=== PATIENT | female | born 1995 | race Caucasian/White ===

== ENCOUNTER 2023-02-16 17:42 | Emergency (ER) | payer SELFPAY ==
--- NOTE | 2023-02-16 18:45 | ER ---
Nurse's Notes [facility] Name: Michelle Khan Age: 27 yrs Sex: Female : 1995 Arrival Date: 02/16/2023 Time: 17:42 Bed 12 Private MD: Diagnosis: Influenza due to identified novel influenza A virus-B Presentation: 02/16 18:00 Chief complaint: Patient states: fatigue, decreased appetite, malaise, runny nose, body cm10 aches, cough, nausea, diarrhea onset wednesday. Coronavirus screen: Vaccine status: Patient reports being unvaccinated. Client denies travel out of the [place] in the last 14 days. Ebola Screen: Patient denies travel to an Ebola-affected area in the 21 days before illness onset. No symptoms or risks identified at this time. Initial Sepsis Screen: Does the patient meet any 2 criteria? No. Patient's initial sepsis screen is negative. Does the patient have a suspected source of infection? No. Patient's initial sepsis screen is negative. Risk Assessment: Do you want to hurt yourself or someone else? Patient reports no desire to harm self or others. Onset of symptoms was February 16, 2023. 18:00 Method Of Arrival: Ambulatory cm10 18:00 Acuity: UVALDO 4 cm10 Triage Assessment: 18:02 General: Appears in no apparent distress. comfortable, Behavior is calm, cooperative. cm10 Pain: Complains of pain in genralized body aches. EENT: No deficits noted. Reports pain in throat. Neuro: No deficits noted. Carty Agitation-Sedation Scale (RASS): 0 - Alert and Calm Level of Consciousness is awake, alert, obeys commands, Oriented to person, place, time, situation. Cardiovascular: No deficits noted. Patient's skin is warm and dry. Respiratory: No deficits noted. Airway is patent Respiratory effort is even, unlabored, Respiratory pattern is regular, symmetrical. GI: No deficits noted. Reports nausea. : No deficits noted. No signs and/or symptoms were reported regarding the genitourinary system. Derm: No deficits noted. No signs and/or symptoms reported regarding the dermatologic system. Skin is intact, Skin is pink, warm \T\ dry. 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 - Social history:: Smoking status: Reported history of juuling and/or vaping. Screenin:18 [facility] ED Fall Risk Assessment (Adult) History of falling in the last 3 months, cm10 including since admission No falls in past 3 months (0 pts) Confusion or Disorientation No (0 pts) Intoxicated or Sedated No (0 pts) Impaired Gait No (0 pts) Mobility Assist Device Used No (0 pt) Altered Elimination No (0 pt) Score/Fall Risk Level 0 - 2 = Low Risk Oriented to surroundings, Maintained a safe environment, Hourly rounding (assess needs \T\ fall precautionary measures) done. Abuse screen: Denies threats or abuse. Denies injuries from another. Nutritional screening: No deficits noted. Tuberculosis screening: No symptoms or risk factors identified. Vital Signs: 18:00 BP 128 / 84; Pulse 96; Resp 18 S; Temp 99.6(O); Pulse Ox 99% on R/A; Weight 86.18 kg cm10 (R); Height 5 ft. 5 in. (R); 19:08 BP 114 / 81; Pulse 89; Resp 18 S; Pulse Ox 100% on R/A; cm10 18:00 Body Mass Index 31.62 (86.18 kg, 165.1 cm) cm10 ED Course: 17:46 Patient arrived in ED. im 17:46 Ni Vela FNP-C is PHCP. kb 17:46 Harmeet Dias DO is Attending Physician. kb 18:00 Aiyana Cordero, NELSON is Primary Nurse. cm10 18:01 Triage completed. cm10 18:03 Arm band placed on Patient placed in an exam room, on a stretcher, on pulse oximetry. cm10 18:05 SARS-COV-2 RT PCR Sent. cm10 18:05 Flu Sent. cm10 18:05 Strep Sent. cm10 19:09 Patient has correct armband on for positive identification. Provided Education on: ER cm10 process and procedures. . 19:09 No provider procedures requiring assistance completed. Patient did not have IV access cm10 during this emergency room visit. Administered Medications: No medications were administered Medication: 18:18 VIS not applicable for this client. cm10 Outcome: 18:44 Discharge ordered by . ganga 19:09 Discharged to home ambulatory, cm10 19:09 Condition: good 19:09 Discharge instructions given to patient, Instructed on discharge instructions, follow up and referral plans. Demonstrated understanding of instructions, follow-up care, 19:09 Patient left the ED. cm10 Signatures: Ni Vela FNP-C FNP-Nataly Carreno Clarissa, RN RN cm10
--- NOTE | 2023-02-16 18:45 | EDPHYS ---
Physician Documentation [facility] Name: Michelle Khan Age: 27 yrs Sex: Female : 1995 Arrival Date: 02/16/2023 Time: 17:42 Bed 12 Private MD: ED Physician Harmeet Dias HPI: 02/16 18:04 This 27 yrs old Female presents to ER via Ambulatory with complaints of Flu Symptoms. kb 18:04 The patient or guardian reports cough, that is intermittent, described as mild, flu kb symptoms, low-grade fever, myalgias. Onset: The symptoms/episode began/occurred 3 day(s) ago. Severity of symptoms: At their worst the symptoms were moderate, in the emergency department the symptoms are unchanged. Modifying factors: The symptoms are alleviated by nothing, the symptoms are aggravated by nothing. Associated signs and symptoms: Pertinent positives: diarrhea, fever, nausea, rhinorrhea, sore throat, Pertinent negatives: chest pain, ear ache, vomiting. The patient has not experienced similar symptoms in the past. The patient has not recently seen a physician. 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 - Social history:: Smoking status: Reported history of juuling and/or vaping. ROS: 18:03 Cardiovascular: Negative for chest pain, palpitations, and edema, kb 18:03 Constitutional: Positive for body aches, chills, fatigue, fever, malaise, 18:03 ENT: Positive for rhinorrhea, sinus congestion, sore throat, 18:03 Respiratory: Positive for cough, 18:03 Abdomen/GI: Positive for nausea, diarrhea, Negative for vomiting, 18:03 All other systems are negative, Exam: 18:03 Constitutional: This is a well developed, well nourished patient who is awake, alert, kb and in no acute distress. Head/Face: Normocephalic, atraumatic. ENT: Moist Mucous membranes Cardiovascular: Regular rate Respiratory: Respirations even and unlabored. No increased work of breathing. Talking in full sentences Abdomen/GI: Soft, non-tender. No distention Skin: Warm, dry with normal turgor. Normal color. MS/ Extremity: Pulses equal, no cyanosis. Neurovascular intact. Full, normal range of motion. Neuro: Awake and alert, GCS 15, oriented to person, place, time, and situation. Moves all extremities. Normal gait. Vital Signs: 18:00 BP 128 / 84; Pulse 96; Resp 18 S; Temp 99.6(O); Pulse Ox 99% on R/A; Weight 86.18 kg cm10 (R); Height 5 ft. 5 in. (R); 19:08 BP 114 / 81; Pulse 89; Resp 18 S; Pulse Ox 100% on R/A; cm10 18:00 Body Mass Index 31.62 (86.18 kg, 165.1 cm) cm10 MDM: 17:47 Patient medically screened. kb 18:04 Differential diagnosis: flu, covid, uri, strep. Data reviewed: vital signs, nurses kb notes. 18:32 Counseling: I had a detailed discussion with the patient and/or guardian regarding the kb historical points, exam findings, and any diagnostic results supporting the discharge/admit diagnosis, lab results, the need for outpatient follow up, a family practitioner, to return to the emergency department if symptoms worsen or persist or if there are any questions or concerns that arise at home. 02/16 17:53 Order name: Strep; Complete Time: 18:32 kb 02/16 17:53 Order name: Flu; Complete Time: 18:32 kb 02/16 17:53 Order name: SARS-COV-2 RT PCR; Complete Time: 18:44 kb 02/16 18:31 Order name: Throat Culture EDMS Administered Medications: No medications were administered Disposition: 22:00 I was immediately available on-site in the Emergency Department for consultation in the ms3 care of the patient. Disposition Summary: 02/16/23 18:44 Discharge Ordered Notes: Location: Home Condition: Stable Diagnosis - Influenza due to identified novel influenza A virus - B kb Followup: kb - With: Emergency Department - When: As needed - Reason: Worsening of condition Followup: kb - With: Private Physician - When: 2 - 3 days - Reason: Recheck today's complaints, Continuance of care, Re-evaluation by your physician Discharge Instructions: - Discharge Summary Sheet kb - Influenza, Adult, [id number] kb Forms: - Medication Reconciliation Form kb - Thank You Letter kb - Patient Portal Instructions kb - Leadership Thank You Letter kb - Work release form cm10 Signatures: Dispatcher [employer] EDNi Kerr, MARKUSC Harmeet El, DO ms3 Aiyana Cordero, RN RN cm10
[2023-02-16 19:18] VITALS: TEMP 99.6
[2023-02-16 19:19] VITALS: BP 114/81; O2SAT 100
== END 2023-02-16 19:09 | disposition home or self-care (01) ==
LOC: ER 17:42
DX: J10.1 Influenza due to other identified influenza virus with other respiratory manifestations (principal); Z20.822 Contact with and (suspected) exposure to COVID-19
CPT/HCPCS: 87070; 87081; 87635; 87804

== ENCOUNTER → 2023-05-24 | Emergency (ER) | payer SELFPAY ==
[~2023-05-24] MED LIST: LIDOCAINE HCL JELLY 2% 6 ML SYRINGE TOP ONE; OXYCODONE *CR* 10 MG TAB PO ONE
--- OUTSIDE RECORDS SUMMARY | 2023-05-24 08:23 | XMS REPORT | Continuity of Care Document ---
Author Name Unknown Address [address] [facility] [address] [place] [address] [facility] thconnect Address [address] [facility] [place] [address] Care Team Providers Care Shank Rander Name Role Phone PCP, PATIENT DOES NOT HAVE A Primary Care Physic naeem Unavailable CONCHITA BARBOUR Attending Clinician Unavailable BETHEL JOHNSTON Attending Clinician Unavailable AARON ZAMARRIPA Attending Clinician Unavailable Aaron Barbosa Attending Clinician [phone] Bethel Johnston MD Attending Clinician [phone], [facility] Attending Clinician Unavailable Doctor Unassigned, [place] Attending Clinician U navailable Pob, [facility] Main Attending Clinician UnavailConchita Ascencio MD Attending Clinician [phone] Only, Ad[facility] Test Attending Clinician Unavailable CONCHITA BARBOUR Admitting Clinician Unavailable BETHEL JOHNSTON Admitting Clinician Unavailable Conchita Barbour MD Admitting Clinician [phone] Payers Payer Name Policy Type Policy Number Effective Date Expirati on Date Source [facility] [id number] 00:00:00 [facility] [place] [facility] [id number] 00[place]00 [place] [facility] [id number] 2022 00:00:00 Problems Condition Name Condition Details Condition Category Status Onset Date Resolution Date Last Treatment Date Treating Clinician Comments Source Pre-op exam Pre-op exam Disease Active 05-14 00:00: 00 Overview: Formattin g of this note might be different from the original. Added automatic ally from request for surgery [id number] [facility] Encounter for sterilizat ion Encounter for sterilizat ion Disease Active 05-14 00:00: 00 Overview: Formattin g of this note might be different from the original. Added automatic ally from request for surgery [id number] [facility] Obesity (BMI 30-39.9) Obesity (BMI 30-39.9) Disease Active 2019-05 00:00: 00 [facility] Normal vaginal delivery Normal vaginal delivery Disease Active 05-19 00:00: 00 [facility] Cervical prolapse Cervical prolapse Disease Active 2017-05 00:00: 00 [facility] Threatened premature labor affecting , less than 37 weeks in third trimester, antepartum Threatened premature labor affecting , less than 37 weeks in third trimester, antepartum Disease Active 2017-05 00:00: 00 [facility] Allergies, Adverse Reactions, Alerts Allergy Name Allergy Type Status Severity Reaction(s) Onset Date Inactive Date Treating Clinician Comments Source NO KNOWN ALLERGIE S Drug Class Active [facility] Social History Social Habit Start Date Stop Date Quantity Comments Source History of tobacco use Cigarette Smoker [facility] Exposure to SARS-CoV-2 (event) 2022-07-18 00:00:00 2022-07-28 15:13:00 Not sure [facility] Alcohol intake 2022-07-28 00:00:00 2022-07-28 00:00:00 .43 /d [facility] Tobacco use and exposure 2022-07-10 00:00:00 2022-07-10 00:00:00 Smokeless tobacco non-user [facility] Tobacco Comment 2022-05-11 00:00:00 2022-05-11 00:00:00 some day might have a smoke / rare [facility] Alcohol Comment 2020-02-09 00:00:00 2020-02-09 00:00:00 rare [facility] Sex Assigned At 1995 00:00:00 1995 00:00:00 [facility] Smoking Status Start Date Stop Date Source Ex-smoker 2022-07-10 00:00:00 2022-07-10 00:00:00 [facility] Occasional tobacco smoker 2022-05-11 00:00:00 [facility] Medications Ordered Medication Name Filled Medication Name Start Date Stop Date Current Medication? Ordering Clinician Indication Dosage Frequency Signature (SIG) Comments Components Source acetaminoph en-caff-but albital (ESGIC) per capsule 07-10 00:00: 00 Yes [id number] 1{capsu le} Take 1 capsule by mouth every 4 (four) hours as needed for Pain. [facility] Ketoconazol e 1 % shampoo 07-10 00:00: 00 Yes [id number] Apply to area(s) daily. [facility] acetaminoph en-caff-but albital (ESGIC) per capsule 07-10 00:00: 00 Yes [id number] 1{capsu le} Take 1 capsule by mouth every 4 (four) hours as needed for Pain. [facility] Ketoconazol e 1 % shampoo 07-10 00:00: 00 Yes [id number] Apply to area(s) daily. [facility] acetaminoph en-caff-but albital (ESGIC) per capsule 07-10 00:00: 00 Yes [id number] 1{capsu le} Take 1 capsule by mouth every 4 (four) hours as needed for Pain. [facility] Ketoconazol e 1 % shampoo 07-10 00:00: 00 Yes [id number] Apply to area(s) daily. [facility] acetaminoph en-caff-but albital (ESGIC) per capsule 07-10 00:00: 00 Yes [id number] 1{capsu le} Take 1 capsule by mouth every 4 (four) hours as needed for Pain. [facility] Ketoconazol e 1 % shampoo 07-10 00:00: 00 Yes [id number] Apply to area(s) daily. [facility] acetaminoph en-caff-but albital (ESGIC) per capsule 07-10 00:00: 00 Yes [id number] 1{capsu le} Take 1 capsule by mouth every 4 (four) hours as needed for Pain. [facility] Ketoconazol e 1 % shampoo 07-10 00:00: 00 Yes [id number] Apply to area(s) daily. [facility] acetaminoph en-caff-but albital (ESGIC) per capsule 07-10 00:00: 00 Yes [id number] 1{capsu le} Take 1 capsule by mouth every 4 (four) hours as needed for Pain. [facility] Ketoconazol e 1 % shampoo 07-10 00:00: 00 Yes [id number] Apply to area(s) daily. [facility] fluconazole (DIFLUCAN) 150 mg tablet 07-10 00:00: 00 07-25 04:59 :00 No [id number] 150mg Take 1 tablet by mouth every 72 (seventy-t wo) hours for 14 days. [facility] fluconazole (DIFLUCAN) 150 mg tablet 07-10 00:00: 00 07-25 04:59 :00 No [id number] 150mg Take 1 tablet by mouth every 72 (seventy-t wo) hours for 14 days. [facility] fluconazole (DIFLUCAN) 150 mg tablet 07-10 00:00: 00 07-25 04:59 :00 No [id number] 150mg Take 1 tablet by mouth every 72 (seventy-t wo) hours for 14 days. [facility] fluconazole (DIFLUCAN) 150 mg tablet 07-10 00:00: 00 07-25 04:59 :00 No [id number] 150mg Take 1 tablet by mouth every 72 (seventy-t wo) hours for 14 days. [facility] nystatin 100,000 unit/gram cream 4-22 00:00: 00 Yes [id number] Apply to area(s) 2 (two) times daily. [facility] nystatin 100,000 unit/gram cream 08-22 00:00: 00 Yes [id number] Apply to area(s) 2 (two) times daily. [facility] nystatin 100,000 unit/gram cream 08-22 00:00: 00 Yes [id number] Apply to area(s) 2 (two) times daily. [facility] nystatin 100,000 unit/gram cream 08-22 00:00: 00 05-11 00:00 :00 No [id number] Apply to area(s) 2 (two) times daily. [facility] nystatin 100,000 unit/gram cream 08-22 00:00: 00 05-11 00:00 :00 No [id number] Apply to area(s) 2 (two) times daily. [facility] lactated ringers IV infusion 1,000 mL 05-23 15:45: 00 Yes 1000mL at 75 mL/hr, 1,000 mL, IV Infusion, CONTINUOUS , Starting Juanita 05/23/20 at 0945, Until Discontinu ed, Routine, PACU [facility] FENTanyl PF (SUBLIMAZE (PF)) injection 25 mcg 05-23 15:36: 12 Yes 25ug 25 mcg, Slow IV Push, Q5MIN PRN, 4 doses, Starting Juanita 05/23/20 at 0936, Until Discontinu ed, Routine, Pain (scale 4-6), PACU [facility] ondansetron (ZOFRAN (PF)) injection 4 mg 05-23 15:36: 12 Yes 4mg 4 mg, Slow IV Push, PRN, 1 dose, Starting Juanita 05/23/20 at 0936, Until Discontinu ed, Routine, Nausea and Vomiting (N/V), PACU [facility] sodium chloride 0.9 % irrigation solution 05-23 14:38: 00 Yes PRN, Starting Juanita 05/23/20 at 0838, Until Discontinu ed, Intra-op [facility] bupivacaine (preserv free) (SENSORCAIN E MPF) 0.25 % (2.5 mg/mL) injection 05-23 14:28: 00 Yes PRN, Starting Juanita 05/23/20 at 0828, Until Discontinu ed, Routine, Intra-op [facility] lactated ringers IV infusion 1,000 mL 05-23 13:15: 00 05-23 13:20 :00 No 1000mL at 42 mL/hr, 1,000 mL, IV Infusion, ONCE, 1 dose, Juanita 05/23/20 at 0715, Routine, DSU Pre-op [facility] ibuprofen 800 mg tablet 05-23 00:00: 00 Yes [id number] 800mg Take 1 tablet by mouth every 8 (eight) hours as needed for Pain (scale 1-3), Pain (scale 4-6) or Alternate with Herrick for pain scale 4-6. [facility] ibuprofen 800 mg tablet 05-23 00:00: 00 Yes [id number] 800mg Take 1 tablet by mouth every 8 (eight) hours as needed for Pain (scale 1-3), Pain (scale 4-6) or Alternate with Herrick for pain scale 4-6. [facility] ibuprofen 800 mg tablet 05-23 00:00: 00 Yes [id number] 800mg Take 1 tablet by mouth every 8 (eight) hours as needed for Pain (scale 1-3), Pain (scale 4-6) or Alternate with Herrick for pain scale 4-6. [facility] ibuprofen 800 mg tablet 05-23 00:00: 00 Yes [id number] 800mg Take 1 tablet by mouth every 8 (eight) hours as needed for Pain (scale 1-3), Pain (scale 4-6) or Alternate with Herrick for pain scale 4-6. [facility] ibuprofen 800 mg tablet 05-23 00:00: 00 Yes [id number] 800mg Take 1 tablet by mouth every 8 (eight) hours as needed for Pain (scale 1-3), Pain (scale 4-6) or Alternate with Herrick for pain scale 4-6. [facility] ibuprofen 800 mg tablet 05-23 00:00: 00 Yes [id number] 800mg Take 1 tablet by mouth every 8 (eight) hours as needed for Pain (scale 1-3), Pain (scale 4-6) or Alternate with Herrick for pain scale 4-6. [facility] ibuprofen 800 mg tablet 05-23 00:00: 00 Yes [id number] 800mg Take 1 tablet by mouth every 8 (eight) hours as needed for Pain (scale 1-3), Pain (scale 4-6) or Alternate with Herrick for pain scale 4-6. [facility] mg tablet 05-23 00:00: 00 05-11 00:00 :00 No [id number] 800mg Take 1 tablet by mouth every 8 (eight) hours as needed for Pain (scale 1-3), Pain (scale 4-6) or Alternate with Herrick for pain scale 4-6. [facility] 800 mg tablet 05-23 00:00: 00 05-11 00:00 :00 No [id number] 800mg Take 1 tablet by mouth every 8 (eight) hours as needed for Pain (scale 1-3), Pain (scale 4-6) or Alternate with Herrick for pain scale 4-6. [facility] HYDROcodone -acetaminop hen 5-325 mg tablet 05-23 00:00: 00 05-26 05:59 :00 No [id number] 1{tbl} Take 1 tablet by mouth every 6 (six) hours as needed for Pain (scale 7-10) for up to 2 days. Indication s: acute pain, Post op pain [facility] 150 mg SR tablet 05-20 00:00: 00 Yes [facility] buPROPion SR 150 mg SR tablet 05-20 00:00: 00 Yes [facility] buPROPion SR 150 mg SR tablet 05-20 00:00: 00 Yes [facility] buPROPion SR 150 mg SR tablet 05-20 00:00: 00 Yes [facility] buPROPion SR 150 mg SR tablet 05-20 00:00: 00 Yes [facility] buPROPion SR 150 mg SR tablet 0 05-20 00:00: 00 Yes [facility] buPROPion SR 150 mg SR tablet 0 05-20 00:00: 00 Yes [facility] buPROPion SR 150 mg SR tablet 0 05-20 00:00: 00 Yes [facility] buPROPion SR 150 mg SR tablet 0 05-20 00:00: 00 Yes [facility] buPROPion SR 150 mg SR tablet 0 05-20 00:00: 00 Yes [facility] buPROPion SR 150 mg SR tablet 0 05-20 00:00: 00 Yes [facility] buPROPion SR 150 mg SR tablet 05-20 00:00: 00 07-10 00:00 :00 No [facility] buPROPion SR 150 mg SR tablet 05-20 00:00: 00 07-10 00:00 :00 No [facility] norethindro ne 0.35 mg tablet 2019-05 0 00:00: 00 Yes [id number] .35mg Take 1 tablet by mouth daily. [facility] norethindro ne 0.35 mg tablet 2019-05 00:00: 00 Yes [id number] .35mg Take 1 tablet by mouth daily. [facility] norethindro ne 0.35 mg tablet 2019-05 00:00: 00 Yes [id number] .35mg Take 1 tablet by mouth daily. [facility] norethindro ne 0.35 mg tablet 2019-05 0 00:00: 00 Yes [id number] .35mg Take 1 tablet by mouth daily. [facility] norethindro ne 0.35 mg tablet 2019-05 0 00:00: 00 Yes [id number] .35mg Take 1 tablet by mouth daily. [facility] norethindro ne 0.35 mg tablet 2019-05 0 00:00: 00 Yes [id number] .35mg Take 1 tablet by mouth daily. [facility] norethindro ne 0.35 mg tablet 2019-05 00:00: 00 Yes [id number] .35mg Take 1 tablet by mouth daily. [facility] norethindro ne 0.35 mg tablet 2019-05 00:00: 00 Yes [id number] .35mg Take 1 tablet by mouth daily. [facility] norethindro ne 0.35 mg tablet 2019-05 00:00: 00 Yes [id number] .35mg Take 1 tablet by mouth daily. [facility] norethindro ne 0.35 mg tablet 2019-05 00:00: 00 Yes [id number] .35mg Take 1 tablet by mouth daily. [facility] norethindro ne 0.35 mg tablet 2019-05 00:00: 00 Yes [id number] .35mg Take 1 tablet by mouth daily. [facility] norethindro ne 0.35 mg tablet 2019-05 00:00: 00 Yes [id number] .35mg Take 1 tablet by mouth daily. [facility] norethindro ne 0.35 mg tablet 2019-05 00:00: 00 Yes [id number] .35mg Take 1 tablet by mouth daily. [facility] norethindro ne 0.35 mg tablet 2019-05 00:00: 00 Yes [id number] .35mg Take 1 tablet by mouth daily. [facility] norethindro ne 0.35 mg tablet 2019-05 00:00: 00 05-23 00:00 :00 No [id number] .35mg Take 1 tablet by mouth daily. [facility] HYDROcodone -acetaminop hen 5-325 mg tablet 12-28 00:00: 00 02-08 00:00 :00 No TAKE 1 TABLET BY MOUTH EVERY 6 HOURS NEEDED [facility] HYDROcodone -acetaminop hen 5-325 mg tablet 12-28 00:00: 02-08 00:00 :00 No TAKE 1 TABLET BY MOUTH EVERY 6 HOURS NEEDED [facility] Vital Signs Vital Name Observation Time Observation Value Comments S no Systolic blood pressure 2022-07-28 20:21:00 124 mm[Hg] [facility] Diastolic blood pressure 2022-07-28 20:21:00 87 mm[Hg] [facility] Heart rate 2022-07-28 20:21:00 75 /min [facility] Body temperature 2022-07-28 20:21:00 36.17 Vicky [facility] Respiratory rate 2022-07-28 20:21:00 18 /min [facility] Body height 2022-07-28 20:21:00 165.1 cm [facility] Body weight 2022-07-28 20:21:00 95.21 kg [facility] BMI 2022-07-28 20:21:00 34.93 kg/m2 [facility] Oxygen saturation in Arterial blood by Pulse oximetry 2022-07-28 20:21:00 98 /min [facility] Systolic blood pressure 2022-07-10 14:48:00 134 mm[Hg] [facility] Diastolic blood pressure 2022-07-10 14:48:00 90 mm[Hg] [facility] Heart rate 2022-07-10 14:45:00 73 /min [facility] Body temperature 2022-07-10 14:45:00 36.61 [facility] Respiratory rate 2022-07-10 14:45:00 18 /min [facility] Body height 2022-07-10 14:45:00 165.1 cm [facility] Body weight 2022-07-10 14:45:00 97.07 kg [facility] BMI 2022-07-10 14:45:00 35.61 kg/m2 [facility] Oxygen saturation in Arterial blood by Pulse oximetry 2022-07-10 14:45:00 99 /min [facility] Systolic blood pressure 2022-05-11 21:04:00 131 mm[Hg] [facility] Diastolic blood pressure 2022-05-11 21:04:00 89 mm[Hg] [facility] Heart rate 2022-05-11 21:04:00 73 /min [facility] Body temperature 2022-05-11 21:04:00 36.72 [facility] Body weight 2022-05-11 21:04:00 95.89 kg [facility] BMI 2022-05-11 21:04:00 35.18 kg/m2 [facility] Systolic blood pressure 2020-08-22 13:04:00 126 mm[Hg] [facility] Diastolic blood pressure 2020-08-22 13:04:00 78 mm[Hg] [facility] Heart rate 2020-08-22 13:04:00 82 /min [facility] Body temperature 2020-08-22 13:04:00 36.44 [facility] Respiratory rate 2020-08-22 13:04:00 18 /min [facility] Body height 2020-08-22 13:04:00 165.1 cm [facility] Body weight 2020-08-22 13:04:00 91.627 kg [facility] BMI 2020-08-22 13:04:00 33.61 kg/m2 [facility] Systolic blood pressure 2020-05-23 15:40:00 120 mm[Hg] [facility] Diastolic blood pressure 2020-05-23 15:40:00 80 mm[Hg] [facility] Heart rate 2020-05-23 15:40:00 81 /min [facility] Body temperature 2020-05-23 15:40:00 36.67 [facility] Respiratory rate 2020-05-23 15:40:00 18 /min [facility] Oxygen saturation in Arterial blood by Pulse oximetry 2020-05-23 15:40:00 99 /min [facility] Body weight 2020-05-15 16:41:00 88.9 kg [facility] BMI 2020-05-15 16:41:00 32.61 kg/m2 [facility] Systolic blood pressure 2020-05-08 19:18:00 135 mm[Hg] [facility] Diastolic blood pressure 2020-05-08 19:18:00 75 mm[Hg] [facility] Heart rate 2020-05-08 19:18:00 90 /min [facility] Body temperature 2020-05-08 19:18:00 36.72 [facility] Respiratory rate 2020-05-08 19:18:00 16 /min [facility] Body height 2020-05-08 19:18:00 165.1 cm [facility] Body weight 2020-05-08 19:18:00 88.905 kg [facility] BMI 2020-05-08 19:18:00 32.62 kg/m2 [facility] Systolic blood pressure 2020-04-04 16:44:00 124 mm[Hg] [facility] Diastolic blood pressure 2020-04-04 16:44:00 74 mm[Hg] [facility] Heart rate 2020-04-04 16:44:00 74 /min [facility] Body temperature 2020-04-04 16:44:00 36.67 [facility] Respiratory rate 2020-04-04 16:44:00 16 /min [facility] Body height 2020-04-04 16:44:00 165.1 cm [facility] Body weight 2020-04-04 16:44:00 89.812 kg [facility] BMI 2020-04-04 16:44:00 32.95 kg/m2 [facility] Systolic blood pressure 2020-02-09 20:05:00 122 mm[Hg] [facility] Diastolic blood pressure 2020-02-09 20:05:00 88 mm[Hg] [facility] Heart rate 2020-02-09 20:05:00 79 /min [facility] Body temperature 2020-02-09 20:05:00 36.78 [facility] Respiratory rate 2020-02-09 20:05:00 18 /min [facility] Body height 2020-02-09 20:05:00 165.1 cm [facility] Body weight 2020-02-09 20:05:00 89.812 kg [facility] BMI 2020-02-09 20:05:00 32.95 kg/m2 [facility] Procedures Procedure Date / Time Performed Performing Clinician Source BI ULTRASOUND BREAST COMPLETE LEFT 2022-07-21 13:57:27 Bethel Johnston [facility] PATIENT FINANCIAL POLICY 2022-07-10 14:27:33 Doctor Unassigned, [place] [facility] ASSIGNMENT OF BENEFITS 2022-05-11 20:52:05 Docto r Unassigned, [place] [facility] POCT URINALYSIS W/O SPECIFIC GRAVITY 2022-05-11 00:00:00 Bethel Johnston [facility] SURGICAL PATHOLOGY EXAM 2020-05-23 15:06:00 AdNickie mahan [facility] LAPAROSCOPIC SALPINGECTOMY 2020-05-23 13:43:00 Conchita Barbour [facility] ASSIGNMENT OF BENEFITS 2020-05-22 14:30:07 Docto r Unassigned, [place] [facility] DSU PRE-OP 2020-05-08 06:01:00 Doctor Unass igned, [place] [facility] STERILIZATION CONSENT FORM 2020-04-04 06:01:00 Doctor Unassigned, [place] [facility] POCT TEST 2020-02-09 00:00:00 Conchita Barbour [facility] Encounters Start Date/Time End Date/Time Encounter Type Admission Type Attending Clinicians Care Facility Care Department Encounter ID Source 2021-03-01 17:24:49 Outpatient R CONCHITA BARBOUR [facility] [id number] [facility] 2023-01-11 08:30:00 2023-01-11 08:30:00 Outpatient R BETHEL JOHNSTON [facility] [id number] [facility] 2022-07-28 15:30:00 2022-07-28 15:41:59 Outpatient R AARON ZAMARRIPA [facility] [id number] [facility] 2022-07-28 15:30:00 2022-07-28 15:41:59 [facility] [id number] 350.1.13.10 [id number] [id number] [facility] 2022-07-21 08:01:17 2022-07-21 23:59:00 Outpatient R JOHNSTON BETHEL [facility] [id number] [facility] 2022-07-21 08:00:00 2022-07-21 23:59:00 Hospital Encounter Blessing Johnstonen [facility] [id number] 350.1.13.10 4.2.7.2.686 [id number] [facility] 2022-07-13 00:00:00 2022-07-13 00:00:00 Telephone Aaron Zamarripa [facility] [id number] 350.1.13.10 4.2.7.2.686 [id number] [facility] 2022-07-10 09:30:00 2022-07-10 09:45:00 Wildlife Biology Technician Visit 2, [facility] [id number] 350.1.13.10 4.2.7.2.686 [id number] [facility] 2022-07-10 09:00:00 2022-07-10 09:09:37 Outpatient R AARON ZAMARRIPA [facility] [id number] [facility] 2022-07-10 09:00:00 2022-07-10 09:09:37 Office Visit Walter Zamarripassica [facility] [id number] 350.1.13.10 4.2.7.2.686 [id number] [facility] 2022-07-10 00:00:00 2022-07-10 00:00:00 Orders Only Doctor Unassigned, [place] [facility] [id number] 350.1.13.10 4.2.7.2.686 [id number] [facility] 2022-05-15 12:45:00 2022-05-15 13:00:00 Wildlife Biology Technician Visit Pob, [facility] Main Bethel Johnston [facility] [id number] 350.1.13.10 4.2.7.2.686 [id number] [facility] 2022-05-15 12:45:00 2022-05-15 12:45:00 Outpatient R BETHEL JOHNSTON [facility] [id number] [facility] 2022-05-14 00:00:00 2022-05-14 00:00:00 Telephone Bethel Johnston [facility] 1.284.114 350.1.13.10 4.2.7.2.686 [id number] [facility] 2022-05-11 15:00:00 2022-05-11 15:29:25 Outpatient R BETHEL JOHNSTON [facility] [id number] [facility] 2022-05-11 15:00:00 2022-05-11 15:29:25 Office Visit Bethel Johnston [facility] 1.284.114 350.1.13.10 4.2.7.2.686 [id number] [facility] 2022-05-11 00:00:00 2022-05-11 00:00:00 Orders Only Doctor Unassigned, [place] [facility] 1.20.114 350.1.13.10 4.2.7.2.686 [id number] [facility] 2021-02-11 10:00:00 2021-02-11 10:00:00 Outpatient R CONCHITA BARBOUR [facility] [id number] [facility] 2020-11-05 11:00:00 2020-11-05 11:00:00 Outpatient R CONCHITA BARBOUR [facility] [id number] [facility] 2020-08-22 07:57:14 2020-08-22 08:38:37 Office Visit AdConchita mahan [facility] [id number] 350.1.13.10 4.2.7.2.686 [id number] [facility] 2020-08-22 08:00:00 2020-08-22 08:00:00 Outpatient R ONEALKALLI CONCHITA [facility] [id number] [facility] [facility] 2020[facility]22 00:00:00 2020-08-22 00:00:00 Letter (Out) Doctor Unassigned, [place] [id number] 350.1.13.10 4.2.7.2.686 [id number] [facility] 2020-08-22 00:00:00 2020-08-22 00:00:00 Letter (Out) Doctor Unassigned, [place] [facility] 1.2.840.114 350.1.13.10 4.2.7.2.686 [id number] [facility] 2020-08-21 00:00:00 2020-08-21 00:00:00 Telephone AdConchita mahan [facility] 1.2.840.114 350.1.13.10 4.2.7.2.686 [id number] [facility] 2020-06-06 13:00:00 2020-06-06 13:00:00 Outpatient R ONEALKALLI [facility] [id number] [facility] 2020-06-06 09:30:00 2020-06-06 09:30:00 Outpatient R BETHEL [facility] [id number] [facility] 2020-05-23 06:47:00 2020-05-23 10:06:00 Hospital Encounter AdConchita mahan [facility] 1.20.114 350.1.13.10 4.2.7.2.686 [id number] [facility] 2020-05-22 08:29:28 2020-05-22 08:44:28 Wildlife Biology Technician Visit Pob, Adc Lab Main Darío [facility] 1.2.114 350.1.13.10 4.2.7.2.686 [id number] [facility] 2020-05-22 08:29:18 2020-05-22 08:44:18 Laboratory Only Only, Adc Test Darío [facility] 1.2.114 350.1.13.10 4.2.7.2.686 [id number] [facility] 2020-05-22 08:30:00 2020-05-22 08:30:00 Outpatient R [facility] [id number] [facility] 2020-05-22 00:00:00 2020-05-22 00:00:00 Orders Only Doctor Unassigned, [place] [facility] 1.2.114 350.1.13.10 4.2.7.2.686 [id number] [facility] 2020-05-08 12:57:05 2020-05-08 13:44:12 Office Visit Darío [facility] Building 1.2.114 350.1.13.10 4.2.7.2.686 [id number] [facility] 2020-05-08 13:00:00 2020-05-08 13:00:00 Outpatient R DARÍO [facility] [id number] [facility] 2020-05-08 00:00:00 2020-05-08 00:00:00 Orders Only Doctor Unassigned, [place] [facility] 1.2.840.114 350.1.13.10 4.2.7.2.686 [id number] [facility] 2020-04-04 09:52:50 2020-04-04 11:26:44 Office Visit AdConchita mahan [facility] 1.2.840.114 350.1.13.10 4.2.7.2.686 [id number] [facility] 2020-04-04 10:00:00 2020-04-04 10:00:00 [facility] [id number] 2020-04-04 00:00:00 2020-04-04 00:00:00 Orders Only Doctor Unassigned, [place] [facility] 1.2.840.114 350.1.13.10 4.2.7.2.686 [id number] [facility] 2020-02-09 13:29:01 2020-02-09 14:52:14 Office Visit Conchita Barbour [facility] 1.2.840.114 350.1.13.10 4.2.7.2.686 [id number] [facility] 2020-02-09 13:30:00 2020-02-09 13:30:00 [facility] [id number] [facility] Results Test Description Test Time Test Comments Results Result Co mments Source [facility]/O SPECIFIC [id number] 21:02:00* Test Item Value Reference Range Interpretation Comme nts POCT PH U (test code = 3254) 5 mg/dl 5-8 POCT U LEUK EST (test code = 3263) ++ Negative - Negative POCT U NIT (test code = 3262) Negative Negative - Negati ve POCT U PROT (test code = 3259) Negative Negative - Negat kerline POCT U GLU (test code = 3256) Normal Negative - Negati ve POCT U KETONE (test code = 3258) Negative Negative - Neg ative POCT U BLD (test code = 3257) Negative - Negati ve [facility] [id number] 17:28:00* Test Item Value Reference Range Interpretation Comme nts Case Report (test code = 8331308600) Surgical Pathology ?Case: [id number] ? Authorizing Provider: ?Conchita Barbour MD ? Collected: ? 05/23/2020 0906 ?Ordering Location: ? ? [facility] ? ? ?Received: ?05/23/2020 1451 ? [facility] ?Pathologist: ? Willian Hagen MD ?Specimen: ? ?BILATERAL FALLOPIAN TUBES, BILATERAL PARTIAL FALLOPIAN TUBES ? Final Diagnosis (test code = 6791947022) q1dusVHyGCDhc2zlRBQsmST uZzEwMzNcZnRuYmpcdWMxIH aefoWtFYfyt3ReH4PfAxTyO FxhbnNpXGRlZmxhbmcxMDMz CNP6qjSsZMUnBHvbMQZcDZx jRs6foSAkpJuhThMgTGAxo6 fagtZOlfcvuMb4u9phRYEpP rT5qCQnXAieJ7hpyxTlkJRr LUEgPPl4aM93HNJcgR6kyWE sIDtccmVkMFxncmVlbjBcYm p3HDWaF0lnSAQwFVKbP5CzG D1eDNIhMsu8AUZ8ITQ4cAqp b2D6sKPfxJObcAsdTcZoIpX pAAUAp3LkSSy9dXssN1JkWR BzQoB1dMHfAPUzFQnjTGBvX KLhhfC3sD75QBejiqL6oOSm o3Pkh91si364aW6hlUZlFGY 0TGQdSNCdcPKpBQHpWLH5YQ JqlSTgJ6vyKRupOQ2okoxzU CE0RSszNKAriNfsCQlvBTOl PkEprOTcKGXaxJcaAYafy72 3RTH7MsIiJG3xX8Hlz4S3qL 9maXRcZGVmdGFiNzIwXGZvc n2lmYTiGIguq3SmDTS5cfR6 eLPtvJYfFRNpMC63Yhodz9N wCywlJRP9FMWpbxXra5Ise0 fpLtXfkxDjE7wpQ3IuSNGcH RAfMYSmHuYbkiWjo5Noj5Fk bOCnhFu9s5ptACRoYEWamBt ad0njKPF1QNWzT9B8bSTqy5 zfMTcvGUQucPI8jvBwSGDfx WFuL8TotY5aCAcnLU2ocii4 o6vrXwHsVA4mwlxye8aeVQe mMZTpFGY0CmCiDSWno9Zbhc kmFpWpl2LfaUOfMHhsD05tb 317STOmckTrZ8ztgPUocxdy bGFpblxmMFxmczIwXHFsXHB sYWluXGYwXGZzMjBccGxhaW 5cZjBcZnMyMFxwYXJccGxha X7lUxPtEqFlGANOAtHQBBbZ N1HPOU0xHBMSFSZfVWFDMVN XPCGNAHjiJ8XJMBCHFXCWHP GTT7ZKQZdBKynexNZjGAIbW I5sPyTLYIQAWu5BMxXNMKMC OL8KTT7MKRPAYEbCXTvJCqI EYLOIGCiQKV1BCEHOGWHntY FyXHBhclxwbGFpblxmMFxmc pZxRTOumv96WEK4AaGte2F7 JYZyNzLvKTHeHP8xlUifATC bTM3zKOJuE2lilT5cxvd3Zw RqLUUrDlR0GWCrpuP9Wfx2S UReIVozl5bzo0GyG6TdlGDh yEx9e2srIMSdZgM5lAPwLAn rV9ddtyDkrVErHJDaMHn8dN kyAmDdGCMoi7ljjcGiEzZcE NMgKSStKHLttWvznsv7uO02 OGEwiC0ftJArXBruujRgCtT 3VPmpWQWoJxP3IXCuhHFkRE MhI0owBYPzCMjtUNXfQRfvr FKeGBZ7wQmnz1P8zVFffHUc cEcwTdIgRoGiWHJGs3TuKLf 4qMtoW0GvSZLgJqN1jLKbZA GrCBszHUIyTCGqspO0iI97H TowjrN0nNOyl0Fmb01gj009 hA4fnUNtVDM9BBRpZQPxfXG yVTTaDZG8TFSikFJxI6loJR RpXG3hbhijROqiMKzzHXBiv MC3MJNxhYCaV1BrQROhLRiq VWLtabc3FuDzMo8nfPNrjMv nPExmq5day3iqnVDtUsu5MY PaRyOhOaeqLNhee9Yvv5coL MYryz3hOIG5uYZjxLbyj5E6 bGUxXGRudGJsbnNiZGJcZmV 0BQxhMV5fmc62NNJeXFK4ha 5ybGNccGdicmRyaGVhZFxwZ 9NvNBNmi831ONZlO1BpLJAs v7T5yeTxWoLcRUBisZC9ztT 0SDMlXSx0zMHmpgZ4glUsyB RlH2kuaX3hKYSxZK5fnpbdd 1aaOKmtFQhdJZRocGA6neN2 JBZbaGVcK8ZluX5sJCHhLIf wNIOusjl5WvSaUp0caFStiL cyMFxzYmtwYWdlXHBnbmNvb nRccGduZGVjXHBsYWluXHBs YWluXGYwXGZzMjRccWxccGx vfF8jWvOeQtKjZRonCJ8dYY XyO2clvGWrXTNeWNDxO7daZ gAraP6wgCktBLevScDmFyVd MFxwYXIgSSBoYXZlIHBlcnN ywgUojGssybW5wQZ5AANlDD doDUVsSUCywBBzmz0pwUpjW IBcGS3fKTFmuqDoCHyskRih ALoiQDU5GKSrxZCbiOWdhRM kZSBieSByZXNpZGVudHMsIG OdhNekv5Awo9WvwXS1rD0qz 4trs8MqPYHqxEY6RK68ssQ2 nX5oLZMjXG2nRVEjRL1wcFH yrCByISBjb05wnAsmdsLcLG BvcnQuXHBsYWluXGYyXGZzM jhcbGFuZzEwMzNcaGljaFxm AicaIaKtDTWoIQfcI6kqTqZ rNdWgVEmwYVB1zP== Clinical Information (test code = [id number]) PERMANENT STERILIZATION Gross Description (test code = 4292875608) i4leeSRiLDVfmPCfYlKhBBD vFLLhu1kbBLVfdGNvUqRvDf NcZnRuYmpcdWMxXGRlZmYwe 8rhg717uZLvd7kkYGKrFgK8 yRRjUDNphWEvE922FGPjSDl mx0klz0YkYIHyfLNif8P8YI VMyodkbSr2a2sbLpEhAaV4b JSuSJfpB2hwivUrjWFnJACh K4NjvfZXBYQyZkq1gDfsT15 fg3W8EryyQ6vhFFQqBZurWJ VdJEzkzAYyELT7BCUfCGP2M PrnjeTgfbR1YBdztGFlSzU2 UDp5h9xsnXqpJZXxDII0u8j lQNransYdCG4urb8ttQb3x9 xjczEgRGVmYXVsdCBQYXJhZ 5AnuLanMw4yyHy1aBiuKcrs RVD4Knu0CY0xst01fvu7iXb oKIRirnygTzF5CXzvBEGzkc vxMUt0LBqgPYXnzIZaBWCzx ZIyV4EgJLwcWQ3pwdz5ZtEb EC3irtzySEvmKEItFLA7HqX pKTWoq2FbrtuwXnBxyi4xdo 66RSZ6f9NtiEqxWLM1ZGK9Y cZlEw2jjNWuRORsRG8wMtDr xNMqTJXtyo92pSuuTXxpdwV bpH2dEdVtZFRpqMRzUDRxPZ 9ibWFwKROjuY5rxpqoEFWhK sRujfcgUKHcrTveopImOo1j sFjmFBW4GKotP1kpqQ8kMkR 4RQaiY2onyS5jQMh5LQaebB Q3XGZjlY1wQP8qimosp0ylB PX4EMtwVDXnfhC2nwYeNIYn oMHjN3KwaU53SoNcoBAgK6D xcB9sPMijYAIxrqx3GgXwUb 9ywFRwvZT5ZOtaSciuZLnaY HBnbmNvbnRccGduZGVjXHBs YWluXHBsYWluXGYwXGZzMjB ccGFyZFxwbGFpblxmMFxmcz IwXHBsYWluXGYxXGZzMjAgU 4MoT9ygRL9fCQBgcaRzHWNg cBPkPUFvraSfp2TtYKubdzJ sYWJlbGVkIHdpdGggdGhlIH CqvFdketSyueEzAL9pCSRQX GJuaT2sTOQfRRAnyZqbbHLy JRczzPZnhDaquXKyKMyyn2H xVP0joKIpNGYiEF9tVSVedp Vpo5ZdPYTteC2jPXBfK51ro ZRgXTQuF43cvlHzFS2wBWVi ft6deAVurWLxEwEwmR8duEK hQDC8TbNsYXGwMBDjwPZpru YlQN4hjKcqYuuuSA67DRBiF UxsWVMrFO7iqEWyNJIkSOYx AoifH68gfV2zwYJmQ6XjGHT 5IDAuNCBjbSBkaWFtZXRlci kuIFRoZSBmaXJzdCBtZWFzd ZYaSCK3oFPdTEeuewVhiXNt jRBgDOdoyI8fqehbD4aeRTX 1dCBzdXJmYWNlcyBhbmQgdG hvEMZtM13uNRNqYFRqoHNdZ BK1dAFlDGrxuwQwUDrrNXSp omBdyZYof8XqLrOkUZIwVUV zjPMby9MdqAO0oRHiFSYqU7 Woh47cWOYnSNFqcHDzwJS5C QVfdR4vPVDtKJRhwZXpMMIf oDClODB4iENuGQ5HGmZsUy0 bUX9eWME8mxMbYUJ9MzQmXh arXBNehTtjrS3mCxLnDyVqR rijXW6eTUVaN9wyzYAuIWQm POUwY6pfQpWihR3plFtiVqm jZjFcZnMxNlxwYXJccGxhaW 5cZjFcZnMyMCBKdWxpZSBNY 6mmrOQjUNkhVCFDPLVhyn7= Embedded Images (test code = [id number]) [facility] [id number] 20:07:00* Test Item Value Reference Range Interpretation Comme nts POCT PREG (test code = 1605) Negative On board controls acceptable with C Line (test code = 3574) Yes POCT PREG LOT # (test code = 3575) POCT PREG TEST DATE ( test code = 3576) Lab Interpretation (test cod e = 16982-9) Normal [facility] [id number] 20:07:00* Test Item Value Reference Range Interpretation Comme nts POCT PREG (test code = 1605) Negative On board controls acceptable with C Line (test code = 3574) Yes POCT PREG LOT # (test code = 3575) POCT PREG TEST DATE ( test code = 3576) Lab Interpretation (test cod e = 01699-0) Normal [facility]
--- NOTE | 2023-05-24 09:15 | EDPHYS ---
Physician Documentation [facility] Name: Michelle Khan Age: 27 yrs Sex: Female : 1995 Arrival Date: 05/24/2023 Time: 08:19 Bed 12 Private MD: ED Physician Yoni Child HPI: 05/24 09:06 This 27 yrs old Female presents to ER via Ambulatory with complaints of Abscess. sb4 09:06 The patient presents with an abscess of the right jaw. Description: The affected area sb4 is small, confluent, erythematous, fluctuant, raised, swollen, warm. Onset: The symptoms/episode began/occurred yesterday. Possible cause(s): unknown. Associated signs and symptoms: The patient has no apparent associated signs or symptoms. The patient has experienced a previous episode. The patient has not recently seen a physician. 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 sb4 Historical: - Allergies: 08:38 No Known Allergies; iw - Home Meds: 08:38 None [Active]; iw - PMHx: 08:38 None; iw - PSHx: 08:38 tubal ligation; iw - Immunization history:: Adult Immunizations. - Social history:: Smoking status: Reported history of juuling and/or vaping. ROS: 09:06 Constitutional: Negative for fever, chills, and weight loss, sb4 09:06 Skin: Positive for abscess, Exam: 09:06 Constitutional: This is a well developed, well nourished patient who is awake, alert, sb4 and in no acute distress. Head/Face: Normocephalic, atraumatic. Eyes: Extra-ocular motions intact. Periorbital areas with no swelling, redness, or edema. ENT: Mucous membranes moist. MS/ Extremity: Pulses equal, no cyanosis. Neurovascular intact. Full, normal range of motion. Neuro: Awake and alert, GCS 15, oriented to person, place, time, and situation. Motor strength 5/5 in all extremities. Sensory grossly intact. 09:06 Skin: abscess, that is small, of the right jaw, with fluctuance, that is moderate, Vital Signs: 08:37 BP 132 / 97; Pulse 75; Resp 16; Temp 98.1; Pulse Ox 98% ; Weight 86.18 kg; Height 5 ft. iw 5 in. ; 08:37 Body Mass Index 31.62 (86.18 kg, 165.1 cm) iw Procedures: 09:13 I \T\ D: Incision and drainage was performed for an abscess of the right jaw Prepped with sb4 Betadine, Anesthetized with topical lidocaine. Incised with 18 gauge. Drained small amount purulent fluid. Dressing: bandaid the patient tolerated the procedure well. MDM: 08:39 Patient medically screened. sb4 09:06 Differential diagnosis: abscess, allergic reaction, cellulitis, insect bite. sb4 09:13 Data reviewed: vital signs, nurses notes, and as a result, I will discharge patient. sb4 Counseling: I had a detailed discussion with the patient and/or guardian regarding the historical points, exam findings, and any diagnostic results supporting the discharge/admit diagnosis, to return to the emergency department if symptoms worsen or persist or if there are any questions or concerns that arise at home. Administered Medications: 08:59 Drug: Lidocaine Mucous Membrane Gel 2 % 1 application Mucous Membrane once Route: iw Mucous Membrane; Disposition Summary: 05/24/23 09:14 Discharge Ordered Notes: Location: Home sb4 Problem: new sb4 Symptoms: have improved sb4 Condition: Stable sb4 Diagnosis - Cutaneous abscess of face sb4 Followup: sb4 - With: Private Physician - When: 1 week - Reason: Recheck today's complaints, Continuance of care, Re-evaluation by your physician Discharge Instructions: - Discharge Summary Sheet sb4 - Skin Abscess sb4 - Incision and Drainage sb4 Forms: - Medication Reconciliation Form sb4 - Thank You Letter sb4 - Antibiotic Education sb4 - Prescription Opioid Use sb4 - Patient Portal Instructions sb4 - Leadership Thank You Letter sb4 Prescriptions: - Bactrim DS 800-160 mg Oral Tablet - take 1 tablet ORAL route every 12 hours for 10 days; 20 tablet; Refills: 0, sb4 Product Selection Permitted Addendum: 05/25/2023 10:37 I was immediately available for consultation during this patient's visit. I did not e c2 personally see the patient or discuss the patient with the MARI. . Signatures: Modesta Monterroso RN RN Lisa Miller, TOSHIA POPE sb4 Yoni Child MD MD ec2
--- NOTE | 2023-05-24 09:15 | ER ---
Nurse's Notes [facility] Name: Michelle Khan Age: 27 yrs Sex: Female : 1995 Arrival Date: 05/24/2023 Time: 08:19 Bed 12 Private MD: Diagnosis: Cutaneous abscess of face Presentation: 05/24 08:37 Chief complaint: Patient states: thought she had a pimple on right jaw , she popped it iw and now it's more inflamed. Coronavirus screen: At this time, the client does not indicate any symptoms associated with coronavirus-19. Ebola Screen: Patient negative for fever greater than or equal to 101.5 degrees Fahrenheit, and additional compatible Ebola Virus Disease symptoms Patient denies exposure to infectious person. Patient denies travel to an Ebola-affected area in the 21 days before illness onset. No symptoms or risks identified at this time. Initial Sepsis Screen: Does the patient meet any 2 criteria? No. Patient's initial sepsis screen is negative. Does the patient have a suspected source of infection? No. Patient's initial sepsis screen is negative. Risk Assessment: Do you want to hurt yourself or someone else? Patient reports no desire to harm self or others. Onset of symptoms was May 22, 2023. 08:37 Method Of Arrival: Ambulatory iw 08:37 Acuity: UVALDO 4 iw Historical: - Allergies: 08:38 No Known Allergies; iw - Home Meds: 08:38 None [Active]; iw - PMHx: 08:38 None; iw - PSHx: 08:38 tubal ligation; iw - Immunization history:: Adult Immunizations. - Social history:: Smoking status: Reported history of juuling and/or vaping. Assessment: 09:00 General: Appears in no apparent distress. Behavior is calm, cooperative. Pain: iw Complains of pain in right jaw. Neuro: Level of Consciousness is Oriented to. Vital Signs: 08:37 BP 132 / 97; Pulse 75; Resp 16; Temp 98.1; Pulse Ox 98% ; Weight 86.18 kg; Height 5 ft. iw 5 in. ; 08:37 Body Mass Index 31.62 (86.18 kg, 165.1 cm) iw ED Course: 08:21 Patient arrived in ED. rg4 08:23 Lisa Serrano PA-C is PHCP. sb4 08:23 Yoni Child MD is Attending Physician. sb4 08:38 Triage completed. iw 08:39 Arm band placed on. iw 08:45 Modesta Monterroso, RN is Primary Nurse. iw Administered Medications: 08:59 Drug: Lidocaine Mucous Membrane Gel 2 % 1 application Mucous Membrane once Route: iw Mucous Membrane; Outcome: 09:14 Discharge ordered by . sb4 09:29 Patient left the ED. iw Signatures: Modesta Monterroso RN RN iw Carmen Storey rg4 Lisa Serrano PA-C PA-C sb4
[2023-05-24 09:58] VITALS: BP 132/97; TEMP 98.1; O2SAT 98
== END ==
LOC: ER 08:19
PROC: 0H91XZZ Drainage of Face Skin, External Approach (ICD-10-PCS; principal; 2023-05-24)
DX: L02.01 Cutaneous abscess of face (principal)
CPT/HCPCS: 99282

== ENCOUNTER → 2023-05-25 | Emergency (ER) | payer SELFPAY ==
--- OUTSIDE RECORDS SUMMARY | 2023-05-25 08:45 | XMS REPORT | Continuity of Care Document ---
Author Name Unknown Address [address] [facility] [address] [place] [address] [facility] Address [address] [facility] [place] [address] Care Team Providers Care Biological Science Technician Name Role Phone PCP, PATIENT DOES NOT HAVE A Primary Care Physic naeem Unavailable CONCHITA BARBOUR Attending Clinician Unavailable BETHEL JOHNSTON Attending Clinician Unavailable AARON ZAMARRIPA Attending Clinician Unavailable Aaron Barbosa Attending Clinician Bethel Johnston MD Attending Clinician [phone], [facility] Attending Clinician Unavailable Doctor Unassigned, [place] Attending Clinician U navailable Pob, [facility] Main Attending Clinician UnavailConchita Ascencio MD Attending Clinician [phone] Only, Adc Test Attending Clinician Unavailable CONCHITA BARBOUR Admitting Clinician Unavailable BETHEL JOHNSTON Admitting Clinician Unavailable Conchita Barbour MD Admitting Clinician [phone] Payers Payer Name Policy Type Policy Number Effective Date Expirati on Date Source [facility] [id number] 00:00:00 [place] [place] [facility] [id number] 00[place] [facility] [id number] 2022 00:00:00 Problems Condition Name Condition Details Condition Category Status Onset Date Resolution Date Last Treatment Date Treating Clinician Comments Source Pre-op exam Pre-op exam Disease Active 05-14 00:00: 00 Overview: Formattin g of this note might be different from the original. Added automatic ally from request for surgery [id number] [facility] Encounter for sterilizat ion Encounter for sterilizat ion Disease Active 05-14 00:00: 00 Overview: Formattin g of this note might be different from the original. Added automatic ally from request for surgery [id number] [facility] Obesity (BMI 30-39.9) Obesity (BMI 30-39.9) Disease Active 2019-05 00:00: 00 [facility] Normal vaginal delivery Normal vaginal delivery Disease Active 05-19 00:00: 00 [facility] Cervical prolapse Cervical prolapse Disease Active 2017-05 00:00: 00 [facility] Threatened premature labor affecting , less than 37 weeks in third trimester, antepartum Threatened premature labor affecting , less than 37 weeks in third trimester, antepartum Disease Active 2017-05 00:00: 00 [facility] Allergies, Adverse Reactions, Alerts Allergy Name Allergy Type Status Severity Reaction(s) Onset Date Inactive Date Treating Clinician Comments Source NO KNOWN ALLERGIE S Drug Class Active [facility] Social History Social Habit Start Date Stop Date Quantity Comments Source History of tobacco use Cigarette Smoker [facility] Exposure to SARS-CoV-2 (event) 2022-07-18 00:00:00 2022-07-28 15:13:00 Not sure [facility] Alcohol intake 2022-07-28 00:00:00 2022-07-28 00:00:00 .43 /d [facility] Tobacco use and exposure 2022-07-10 00:00:00 2022-07-10 00:00:00 Smokeless tobacco non-user [facility] Tobacco Comment 2022-05-11 00:00:00 2022-05-11 00:00:00 some day might have a smoke / rare [facility] Alcohol Comment 2020-02-09 00:00:00 2020-02-09 00:00:00 rare [facility] Sex Assigned At 1995 00:00:00 1995 00:00:00 [facility] Smoking Status Start Date Stop Date Source Ex-smoker 2022-07-10 00:00:00 2022-07-10 00:00:00 [facility] Occasional tobacco smoker 2022-05-11 00:00:00 [facility] Medications Ordered Medication Name Filled Medication Name Start Date Stop Date Current Medication? Ordering Clinician Indication Dosage Frequency Signature (SIG) Comments Components Source acetaminoph en-caff-but albital (ESGIC) per capsule 07-10 00:00: 00 Yes [id number] 1{capsu le} Take 1 capsule by mouth every 4 (four) hours as needed for Pain. [facility] Ketoconazol e 1 % shampoo 07-10 00:00: 00 Yes [id number] Apply to area(s) daily. [facility] acetaminoph en-caff-but albital (ESGIC) per capsule 07-10 00:00: 00 Yes [id number] 1{capsu le} Take 1 capsule by mouth every 4 (four) hours as needed for Pain. [facility] Ketoconazol e 1 % shampoo 07-10 00:00: 00 Yes [id number] Apply to area(s) daily. [facility] acetaminoph en-caff-but albital (ESGIC) per capsule 07-10 00:00: 00 Yes [id number] 1{capsu le} Take 1 capsule by mouth every 4 (four) hours as needed for Pain. [facility] Ketoconazol e 1 % shampoo 07-10 00:00: 00 Yes [id number] Apply to area(s) daily. [facility] acetaminoph en-caff-but albital (ESGIC) per capsule 07-10 00:00: 00 Yes [id number] 1{capsu le} Take 1 capsule by mouth every 4 (four) hours as needed for Pain. [facility] Ketoconazol e 1 % shampoo 07-10 00:00: 00 Yes [id number] Apply to area(s) daily. [facility] acetaminoph en-caff-but albital (ESGIC) per capsule 07-10 00:00: 00 Yes [id number] 1{capsu le} Take 1 capsule by mouth every 4 (four) hours as needed for Pain. [facility] Ketoconazol e 1 % shampoo 07-10 00:00: 00 Yes [id number] Apply to area(s) daily. [facility] acetaminoph en-caff-but albital (ESGIC) per capsule 07-10 00:00: 00 Yes [id number] 1{capsu le} Take 1 capsule by mouth every 4 (four) hours as needed for Pain. [facility] Ketoconazol e 1 % shampoo 07-10 00:00: 00 Yes [id number] Apply to area(s) daily. [facility] fluconazole (DIFLUCAN) 150 mg tablet 07-10 00:00: 00 07-25 04:59 :00 No [id number] 150mg Take 1 tablet by mouth every 72 (seventy-t wo) hours for 14 days. [facility] fluconazole (DIFLUCAN) 150 mg tablet 07-10 00:00: 00 07-25 04:59 :00 No [id number] 150mg Take 1 tablet by mouth every 72 (seventy-t wo) hours for 14 days. [facility] fluconazole (DIFLUCAN) 150 mg tablet 07-10 00:00: 00 07-25 04:59 :00 No [id number] 150mg Take 1 tablet by mouth every 72 (seventy-t wo) hours for 14 days. [facility] fluconazole (DIFLUCAN) 150 mg tablet 07-10 00:00: 00 07-25 04:59 :00 No [id number] 150mg Take 1 tablet by mouth every 72 (seventy-t wo) hours for 14 days. [facility] nystatin 100,000 unit/gram cream 4-22 00:00: 00 Yes [id number] Apply to area(s) 2 (two) times daily. [facility] nystatin 100,000 unit/gram cream 08-22 00:00: 00 Yes [id number] Apply to area(s) 2 (two) times daily. [facility] nystatin 100,000 unit/gram cream 08-22 00:00: 00 Yes [id number] Apply to area(s) 2 (two) times daily. [facility] nystatin 100,000 unit/gram cream 08-22 00:00: 00 05-11 00:00 :00 No [id number] Apply to area(s) 2 (two) times daily. [facility] nystatin 100,000 unit/gram cream 08-22 00:00: 00 05-11 00:00 :00 No [id number] Apply to area(s) 2 (two) times daily. [facility] lactated ringers IV infusion 1,000 mL 05-23 15:45: 00 Yes 1000mL at 75 mL/hr, 1,000 mL, IV Infusion, CONTINUOUS , Starting Juanita 05/23/20 at 0945, Until Discontinu ed, Routine, PACU [facility] FENTanyl PF (SUBLIMAZE (PF)) injection 25 mcg 05-23 15:36: 12 Yes 25ug 25 mcg, Slow IV Push, Q5MIN PRN, 4 doses, Starting Juanita 05/23/20 at 0936, Until Discontinu ed, Routine, Pain (scale 4-6), PACU [facility] ondansetron (ZOFRAN (PF)) injection 4 mg 05-23 15:36: 12 Yes 4mg 4 mg, Slow IV Push, PRN, 1 dose, Starting Juanita 05/23/20 at 0936, Until Discontinu ed, Routine, Nausea and Vomiting (N/V), PACU [facility] sodium chloride 0.9 % irrigation solution 05-23 14:38: 00 Yes PRN, Starting Juanita 05/23/20 at 0838, Until Discontinu ed, Intra-op [facility] bupivacaine (preserv free) (SENSORCAIN E MPF) 0.25 % (2.5 mg/mL) injection 05-23 14:28: 00 Yes PRN, Starting Juanita 05/23/20 at 0828, Until Discontinu ed, Routine, Intra-op [facility] lactated ringers IV infusion 1,000 mL 05-23 13:15: 00 05-23 13:20 :00 No 1000mL at 42 mL/hr, 1,000 mL, IV Infusion, ONCE, 1 dose, Juanita 05/23/20 at 0715, Routine, DSU Pre-op [facility] ibuprofen 800 mg tablet 05-23 00:00: 00 Yes [id number] 800mg Take 1 tablet by mouth every 8 (eight) hours as needed for Pain (scale 1-3), Pain (scale 4-6) or Alternate with [place] for pain scale 4-6. [facility] ibuprofen 800 mg tablet 05-23 00:00: 00 Yes [id number] 800mg Take 1 tablet by mouth every 8 (eight) hours as needed for Pain (scale 1-3), Pain (scale 4-6) or Alternate with [place] for pain scale 4-6. [facility] ibuprofen 800 mg tablet 05-23 00:00: 00 Yes [id number] 800mg Take 1 tablet by mouth every 8 (eight) hours as needed for Pain (scale 1-3), Pain (scale 4-6) or Alternate with [place] for pain scale 4-6. [facility] ibuprofen 800 mg tablet 05-23 00:00: 00 Yes [id number] 800mg Take 1 tablet by mouth every 8 (eight) hours as needed for Pain (scale 1-3), Pain (scale 4-6) or Alternate with [place] for pain scale 4-6. [facility] ibuprofen 800 mg tablet 05-23 00:00: 00 Yes [id number] 800mg Take 1 tablet by mouth every 8 (eight) hours as needed for Pain (scale 1-3), Pain (scale 4-6) or Alternate with [place] for pain scale 4-6. [facility] ibuprofen 800 mg tablet 05-23 00:00: 00 Yes [id number] 800mg Take 1 tablet by mouth every 8 (eight) hours as needed for Pain (scale 1-3), Pain (scale 4-6) or Alternate with [place] for pain scale 4-6. [facility] ibuprofen 800 mg tablet 05-23 00:00: 00 Yes [id number] 800mg Take 1 tablet by mouth every 8 (eight) hours as needed for Pain (scale 1-3), Pain (scale 4-6) or Alternate with [place] for pain scale 4-6. [facility] 800 mg tablet 05-23 00:00: 00 05-11 00:00 :00 No [id number] 800mg Take 1 tablet by mouth every 8 (eight) hours as needed for Pain (scale 1-3), Pain (scale 4-6) or Alternate with [place] for pain scale 4-6. [facility] ibuprofen 800 mg tablet 05-23 00:00: 00 05-11 00:00 :00 No [id number] 800mg Take 1 tablet by mouth every 8 (eight) hours as needed for Pain (scale 1-3), Pain (scale 4-6) or Alternate with [place] for pain scale 4-6. [facility] HYDROcodone -acetaminop hen 5-325 mg tablet 05-23 00:00: 00 05-26 05:59 :00 No [id number] 1{tbl} Take 1 tablet by mouth every 6 (six) hours as needed for Pain (scale 7-10) for up to 2 days. Indication s: acute pain, Post op pain [facility] bu[facility]ion SR 150 mg SR tablet 05-20 00:00: 00 Yes [facility] buPROPion SR 150 mg SR tablet 05-20 00:00: 00 Yes [facility] buPROPion SR 150 mg SR tablet 05-20 00:00: 00 Yes [facility] buPROPion SR 150 mg SR tablet 05-20 00:00: 00 Yes [facility] buPROPion SR 150 mg SR tablet 05-20 00:00: 00 Yes [facility] buPROPion SR 150 mg SR tablet 0 05-20 00:00: 00 Yes [facility] buPROPion SR 150 mg SR tablet 0 05-20 00:00: 00 Yes [facility] buPROPion SR 150 mg SR tablet 0 05-20 00:00: 00 Yes [facility] buPROPion SR 150 mg SR tablet 0 05-20 00:00: 00 Yes [facility] buPROPion SR 150 mg SR tablet 0 05-20 00:00: 00 Yes [facility] buPROPion SR 150 mg SR tablet 0 05-20 00:00: 00 Yes [facility] buPROPion SR 150 mg SR tablet 05-20 00:00: 00 07-10 00:00 :00 No [facility] buPROPion SR 150 mg SR tablet 05-20 00:00: 00 07-10 00:00 :00 No [facility] norethindro ne 0.35 mg tablet 2019-05 0 00:00: 00 Yes [id number] .35mg Take 1 tablet by mouth daily. [facility] norethindro ne 0.35 mg tablet 2019-05 00:00: 00 Yes [id number] .35mg Take 1 tablet by mouth daily. [facility] norethindro ne 0.35 mg tablet 2019-05 00:00: 00 Yes [id number] .35mg Take 1 tablet by mouth daily. [facility] norethindro ne 0.35 mg tablet 2019-05 0 00:00: 00 Yes [id number] .35mg Take 1 tablet by mouth daily. [facility] norethindro ne 0.35 mg tablet 2019-05 0 00:00: 00 Yes [id number] .35mg Take 1 tablet by mouth daily. [facility] norethindro ne 0.35 mg tablet 2019-05 0 00:00: 00 Yes [id number] .35mg Take 1 tablet by mouth daily. [facility] norethindro ne 0.35 mg tablet 2019-05 00:00: 00 Yes [id number] .35mg Take 1 tablet by mouth daily. [facility] norethindro ne 0.35 mg tablet 2019-05 00:00: 00 Yes [id number] .35mg Take 1 tablet by mouth daily. [facility] norethindro ne 0.35 mg tablet 2019-05 00:00: 00 Yes [id number] .35mg Take 1 tablet by mouth daily. [facility] norethindro ne 0.35 mg tablet 2019-05 00:00: 00 Yes [id number] .35mg Take 1 tablet by mouth daily. [facility] norethindro ne 0.35 mg tablet 2019-05 00:00: 00 Yes [id number] .35mg Take 1 tablet by mouth daily. [facility] norethindro ne 0.35 mg tablet 2019-05 00:00: 00 Yes [id number] .35mg Take 1 tablet by mouth daily. [facility] norethindro ne 0.35 mg tablet 2019-05 00:00: 00 Yes [id number] .35mg Take 1 tablet by mouth daily. [facility] norethindro ne 0.35 mg tablet 2019-05 00:00: 00 Yes [id number] .35mg Take 1 tablet by mouth daily. [facility] norethindro ne 0.35 mg tablet 2019-05 00:00: 00 05-23 00:00 :00 No [id number] .35mg Take 1 tablet by mouth daily. [facility] HYDROcodone -acetaminop hen 5-325 mg tablet 12-28 00:00: 00 02-08 00:00 :00 No TAKE 1 TABLET BY MOUTH EVERY 6 HOURS NEEDED [facility] HYDROcodone -acetaminop hen 5-325 mg tablet 12-28 00:00: 02-08 00:00 :00 No TAKE 1 TABLET BY MOUTH EVERY 6 HOURS NEEDED [facility] Vital Signs Vital Name Observation Time Observation Value Comments S no Systolic blood pressure 2022-07-28 20:21:00 124 mm[Hg] [facility] Diastolic blood pressure 2022-07-28 20:21:00 87 mm[Hg] [facility] Heart rate 2022-07-28 20:21:00 75 /min [facility] Body temperature 2022-07-28 20:21:00 36.17 Vicky [facility] Respiratory rate 2022-07-28 20:21:00 18 /min [facility] Body height 2022-07-28 20:21:00 165.1 cm [facility] Body weight 2022-07-28 20:21:00 95.21 kg [facility] BMI 2022-07-28 20:21:00 34.93 kg/m2 [facility] Oxygen saturation in Arterial blood by Pulse oximetry 2022-07-28 20:21:00 98 /min [facility] Systolic blood pressure 2022-07-10 14:48:00 134 mm[Hg] [facility] Diastolic blood pressure 2022-07-10 14:48:00 90 mm[Hg] [facility] Heart rate 2022-07-10 14:45:00 73 /min [facility] Body temperature 2022-07-10 14:45:00 36.61 Vicky [facility] Respiratory rate 2022-07-10 14:45:00 18 /min [facility] Body height 2022-07-10 14:45:00 165.1 cm [facility] Body weight 2022-07-10 14:45:00 97.07 kg [facility] BMI 2022-07-10 14:45:00 35.61 kg/m2 [facility] Oxygen saturation in Arterial blood by Pulse oximetry 2022-07-10 14:45:00 99 /min [facility] Systolic blood pressure 2022-05-11 21:04:00 131 mm[Hg] [facility] Diastolic blood pressure 2022-05-11 21:04:00 89 mm[Hg] [facility] Heart rate 2022-05-11 21:04:00 73 /min [facility] Body temperature 2022-05-11 21:04:00 36.72 Vicky [facility] Body weight 2022-05-11 21:04:00 95.89 kg [facility] BMI 2022-05-11 21:04:00 35.18 kg/m2 [facility] Systolic blood pressure 2020-08-22 13:04:00 126 mm[Hg] [facility] Diastolic blood pressure 2020-08-22 13:04:00 78 mm[Hg] [facility] Heart rate 2020-08-22 13:04:00 82 /min [facility] Body temperature 2020-08-22 13:04:00 36.44 Vicky [facility] Respiratory rate 2020-08-22 13:04:00 18 /min [facility] Body height 2020-08-22 13:04:00 165.1 cm [facility] Body weight 2020-08-22 13:04:00 91.627 kg [facility] BMI 2020-08-22 13:04:00 33.61 kg/m2 [facility] Systolic blood pressure 2020-05-23 15:40:00 120 mm[Hg] [facility] Diastolic blood pressure 2020-05-23 15:40:00 80 mm[Hg] [facility] Heart rate 2020-05-23 15:40:00 81 /min [facility] Body temperature 2020-05-23 15:40:00 36.67 Vicky [facility] Respiratory rate 2020-05-23 15:40:00 18 /min [facility] Oxygen saturation in Arterial blood by Pulse oximetry 2020-05-23 15:40:00 99 /min [facility] Body weight 2020-05-15 16:41:00 88.9 kg [facility] BMI 2020-05-15 16:41:00 32.61 kg/m2 [facility] Systolic blood pressure 2020-05-08 19:18:00 135 mm[Hg] [facility] Diastolic blood pressure 2020-05-08 19:18:00 75 mm[Hg] [facility] Heart rate 2020-05-08 19:18:00 90 /min [facility] Body temperature 2020-05-08 19:18:00 36.72 Vicky [facility] Respiratory rate 2020-05-08 19:18:00 16 /min [facility] Body height 2020-05-08 19:18:00 165.1 cm [facility] Body weight 2020-05-08 19:18:00 88.905 kg [facility] BMI 2020-05-08 19:18:00 32.62 kg/m2 [facility] Systolic blood pressure 2020-04-04 16:44:00 124 mm[Hg] [facility] Diastolic blood pressure 2020-04-04 16:44:00 74 mm[Hg] [facility] Heart rate 2020-04-04 16:44:00 74 /min [facility] Body temperature 2020-04-04 16:44:00 36.67 Vicky [facility] Respiratory rate 2020-04-04 16:44:00 16 /min [facility] Body height 2020-04-04 16:44:00 165.1 cm [facility] Body weight 2020-04-04 16:44:00 89.812 kg [facility] BMI 2020-04-04 16:44:00 32.95 kg/m2 [facility] Systolic blood pressure 2020-02-09 20:05:00 122 mm[Hg] [facility] Diastolic blood pressure 2020-02-09 20:05:00 88 mm[Hg] [facility] Heart rate 2020-02-09 20:05:00 79 /min [facility] Body temperature 2020-02-09 20:05:00 36.78 Vicky [facility] Respiratory rate 2020-02-09 20:05:00 18 /min [facility] Body height 2020-02-09 20:05:00 165.1 cm [facility] Body weight 2020-02-09 20:05:00 89.812 kg [facility] BMI 2020-02-09 20:05:00 32.95 kg/m2 [facility] Procedures Procedure Date / Time Performed Performing Clinician Source BI ULTRASOUND BREAST COMPLETE LEFT 2022-07-21 13:57:[address] [facility] PATIENT FINANCIAL POLICY 2022-07-10 14:27:33 Doctor Unassigned, [place] [facility] ASSIGNMENT OF BENEFITS 2022-05-11 20:52:05 Docto r Unassigned, [place] [facility] POCT URINALYSIS W/O SPECIFIC GRAVITY 2022-05-11 00:00:00 Bethel Johnston [facility] SURGICAL PATHOLOGY EXAM 2020-05-23 15:06:00 AdNickie mahan [facility] LAPAROSCOPIC SALPINGECTOMY 2020-05-23 13:43:00 Conchita Barbour [facility] ASSIGNMENT OF BENEFITS 2020-05-22 14:30:07 Docto r Unassigned, [place] [facility] DSU PRE-OP 2020-05-08 06:01:00 Doctor Unass igned, [place] [facility] STERILIZATION CONSENT FORM 2020-04-04 06:01:00 Doctor Unassigned, [place] [facility] POCT TEST 2020-02-09 00:00:00 Conchita Barbour [facility] Encounters Start Date/Time End Date/Time Encounter Type Admission Type Attending Clinicians Care Facility Care Department Encounter ID Source 2021-03-01 17:24:49 Outpatient R CONCHITA BARBOUR [facility] KARLO [id number] [facility] 2023-01-11 08:30:00 2023-01-11 08:30:00 Outpatient R BETHEL JOHNSTON [facility] [id number] [facility] 2022-07-28 15:30:00 2022-07-28 15:41:59 Outpatient R AARON ZAMARRIPA [facility] [id number] [facility] 2022-07-28 15:30:00 2022-07-28 15:41:59 [facility] [id number] [facility] 2022-07-21 08:01:17 2022-07-21 23:59:00 Outpatient R JOHNSTON BETHEL [facility] [id number] [facility] 2022-07-21 08:00:00 2022-07-21 23:59:00 Hospital Encounter [facility] [id number] [id number] [id number] [facility] 2022-07-13 00:00:00 2022-07-13 00:00:00 Telephone Aaron Zamarripa [facility] [id number] [facility] 2022-07-10 09:30:00 2022-07-10 09:45:00 Chief Information Officer Visit 2, [facility] [id number] [id number] [facility] 2022-07-10 09:00:00 2022-07-10 09:09:37 Outpatient R AARON ZAMARRIPA [facility] [id number] [facility] 2022-07-10 09:00:00 2022-07-10 09:09:37 Office Visit Walter Zamarripassica [facility] [id number] [id number] [id number] [facility] 2022-07-10 00:00:00 2022-07-10 00:00:00 Orders Only Doctor Unassigned, [place] [facility] [id number] [id number] [id number] [id number] [facility] 2022-05-15 12:45:00 2022-05-15 13:00:00 Chief Information Officer Visit Pob, [facility] Main Bethel Johnston [facility] [id number] [id number] [id number] [id number] [facility] 2022-05-15 12:45:00 2022-05-15 12:45:00 Outpatient R BETHEL JOHNSTON [facility] [id number] [facility] 2022-05-14 00:00:00 2022-05-14 00:00:00 Telephone Bethel Johnston [facility] [id number] [id number] [id number] [id number] [facility] 2022-05-11 15:00:00 2022-05-11 15:29:25 Outpatient R BETHEL JOHNSTON [facility] [id number] [facility] 2022-05-11 15:00:00 2022-05-11 15:29:25 Office Visit Bethel Johnston [facility] [id number] [id number] [id number] [facility] 2022-05-11 00:00:00 2022-05-11 00:00:00 Orders Only Doctor Unassigned, [place] [facility] 1.20.114 350.1.13.10 4.2.7.2.686 [id number] [facility] 2021-02-11 10:00:00 2021-02-11 10:00:00 Outpatient R CONCHITA BARBOUR [facility] [id number] [facility] 2020-11-05 11:00:00 2020-11-05 11:00:00 Outpatient R CONCHITA BARBOUR [facility] [id number] [facility] 2020-08-22 07:57:14 2020-08-22 08:38:37 Office Visit AdConchita mahan [facility] 1.2.840.114 350.1.13.10 4.2.7.2.686 [id number] [facility] 2020-08-22 08:00:00 2020-08-22 08:00:00 Outpatient R ONEALKALLI CONCHITA [facility] [id number] [facility] 2020-08-22 00:00:00 2020-08-22 00:00:00 Letter (Out) Doctor Unassigned, [place] [id number] 350.1.13.10 4.2.7.2.686 [id number] [facility] 2020-08-22 00:00:00 2020-08-22 00:00:00 Letter (Out) Doctor Unassigned, [place] [facility] 1.2.840.114 350.1.13.10 4.2.7.2.686 [id number] [facility] 2020-08-21 00:00:00 2020-08-21 00:00:00 Telephone AdConchita mahan [facility] 1.2.840.114 350.1.13.10 4.2.7.2.686 [id number] [facility] 2020-06-06 13:00:00 2020-06-06 13:00:00 Outpatient R ONEALKALLI [facility] [id number] [facility] 2020-06-06 09:30:00 2020-06-06 09:30:00 Outpatient R BETHEL JOHNSTON [facility] [id number] [facility] 2020-05-23 06:47:00 2020-05-23 10:06:00 Hospital Encounter AdConchita mahan [facility] 1.20.114 350.1.13.10 4.2.7.2.686 [id number] [facility] 2020-05-22 08:29:28 2020-05-22 08:44:28 Chief Information Officer Visit Pob, Adc Lab Main Darío [facility] 1.2.114 350.1.13.10 4.2.7.2.686 [id number] [facility] 2020-05-22 08:29:18 2020-05-22 08:44:18 Laboratory Only Only, Adc Test Darío [facility] 1.2.114 350.1.13.10 4.2.7.2.686 [id number] [facility] 2020-05-22 08:30:00 2020-05-22 08:30:00 Outpatient R [facility] [id number] [facility] 2020-05-22 00:00:00 2020-05-22 00:00:00 Orders Only Doctor Unassigned, [place] [facility] 1.2.114 350.1.13.10 4.2.7.2.686 [id number] [facility] 2020-05-08 12:57:05 2020-05-08 13:44:12 Office Visit Darío [facility] 1.2.114 350.1.13.10 4.2.7.2.686 [id number] [facility] 2020-05-08 13:00:00 2020-05-08 13:00:00 Outpatient R DARÍO [facility] [id number] [facility] 2020-05-08 00:00:00 2020-05-08 00:00:00 Orders Only Doctor Unassigned, [place] [facility] 1.2.840.114 350.1.13.10 4.2.7.2.686 [id number] [facility] 2020-04-04 09:52:50 2020-04-04 11:26:44 Office Visit AdConchita mahan [facility] 1.2.840.114 350.1.13.10 4.2.7.2.686 [id number] [facility] 2020-04-04 10:00:00 2020-04-04 10:00:00 [id number] 2020-04-04 00:00:00 2020-04-04 00:00:00 Orders Only Doctor Unassigned, [place] [facility] 1.2.840.114 350.1.13.10 4.2.7.2.686 [id number] [facility] 2020-02-09 13:29:01 2020-02-09 14:52:14 Office Visit Conchita Barbour [facility] 1.2.840.114 350.1.13.10 4.2.7.2.686 [id number] [facility] 2020-02-09 13:30:00 2020-02-09 13:30:00 [facility] [id number] [facility] Results Test Description Test Time Test Comments Results Result Co mments Source [facility] W/O SPECIFIC [id number] 21:02:00* Test Item Value Reference Range Interpretation [...] code = 3257) Negative - Negati ve [facility] [id number] 17:28:00* Test Item Value Reference Range Interpretation Comme nts Case Report (test code = 8251165111) Surgical Pathology ?Case: [id number] ? Authorizing Provider: ?Conchita Barbour MD ? Collected: ? 05/23/2020 0906 ?Ordering Location: ? ? [facility] ? ? ?Received: ?05/23/2020 1451 ? [facility] ?Pathologist: ? Willian Hagen MD ?Specimen: ? ?BILATERAL FALLOPIAN TUBES, BILATERAL PARTIAL FALLOPIAN TUBES ? Final Diagnosis (test code = 2601097552) e6wjaNWwJBOqe1cnUFUmvZS uZzEwMzNcZnRuYmpcdWMxIH qwcrEyLAmpl7QdD6CkYfRrR FxhbnNpXGRlZmxhbmcxMDMz ETD9dnOgOMCyADbtVNAzIPk oOo1dvGHygUlkOcGcFGDru1 uctyVYzarvgYt4c7ccCHHbA sI7uKSjQZqaV2qaisUzoXYh BZQeCZr9xZ15YZEkaS6vxWR sIDtccmVkMFxncmVlbjBcYm s0OAVmM4juPZVjKFYzU7LyX P0lOLTnDai6LOP1SBH0fMom v7M3pVGntGIqiXaqJcZsCtD rQWTYf0XsXOr6mAkiB2HhMJ NkUnF4sNCkCMJzOPcgVLXxT DJxbnW5yW51CLwvnqW5bJSa g5Imc18ko779pC1swAElDKD 5VCRiCAEfrAOeOGRfEWG0PW VtyZRuA3njYAnbIB2cwnppO RE2UOlgICZgpUlvCCgjVSUe HyFnnXHzIPVcoDcsJFded09 6CTK5NkBxWQ8oN3Ayj4E4tA 9maXRcZGVmdGFiNzIwXGZvc j1vmWBuSNshe0CtXHD0xfA2 nHPfgTVxTAZdUW87Hcfxq1K mMaxcMZZ7QXGbkwPws4Qqw5 axLuYeyhTqS8byH6KhDFMjV OJkQFInNpWfvmCmx2Byr5Et nOZhbKv6y7egJPXaDDNslVi ll5vhEDR5YGYsS7E4vCXoz9 wbJIfmREDxiRH0ywYtKMNdd FMjS8KouJ7mLTclGT8uxtm9 u5ffEgVcFE7obltrf7lbZSf hOWGsSMV1VmUgETWpo5Aeaj ebOwDys7FktHOkKAheO49uo 402BXTaudJfD1enqDSawsip bGFpblxmMFxmczIwXHFsXHB sYWluXGYwXGZzMjBccGxhaW 5cZjBcZnMyMFxwYXJccGxha G1aJnYmKgLvFRYIKhYRJBoN B5XOFQ9wWENBNRHsGDMBWQJ EWWLQNZunL5RPUXCINXELEE PMQ9GVTVlFIjnvuNCqQEVxW R3zBdQYRUFWWj3LWsUFVCOV RF2LUK8WBKYZLTgWVLlWHfC SJQZOZEbZZR3NLRRHGJWheE FyXHBhclxwbGFpblxmMFxmc eQzWNSqnr92ZOY0OvAuu0Q2 WSOzUlTrLDHlSH9guOhmXAB eLP1mIIXvO4ozmG2pmaa7Bq BvCIYhPqU7EYIauhK4Oug8Q QTmLNhcd2xzf3UwE6DkkCCb cMm6s7hrVDDlDpX5zNZmJTj aP8yyywZcnBEkUATcSFc0uV eqWeHaEPVwt1ivpzBpSnHzQ MPwLIYaDTGlhTnclal2sU50 VXEafS8hmBArRMhnbbJzGzP 5KVieNPUdCtH8AJNjmNIuBC RhH0vpWCPjCEpeSAZnXKzjx SPjTYP9qEezi4F7jBPutEUh mShhQfLpWbYyGXWKa5UoUMp 8bXgaF1VhUALeZgS2eGJhFP YqGBcvQRFoCWTkwvB5qF81R GigcvK5xZPlz8Edl24kl588 iE2gsMMgJOO6ROXkAGUmkFZ bWTXoVXV8BNKjxOMsP3dgQN CkKT8ibkafKUvyEXryDDHho CP8IYJtaMUbR3ShTMBbCZiw TACmyxd3ZnMyPv6kbQCuaNh gDUhfx6wwi9jnxXOxNpw2LP UkSoJgEmnlFYiyu5Pra1bcK LTgjg7tCEM6zXTnhAxns5M9 bGUxXGRudGJsbnNiZGJcZmV 3SYcyBW6epd39XFTyXMJ9qn 5ybGNccGdicmRyaGVhZFxwZ 6GiBBRlm890FOGgX5IfYIXu g4Q4hmCcGvYkOQKpsKX1wtE 5WSXgUKx0aZZoscG4uuTrnF UpQ3ffzS1kSREjGM9xafpou 3gxSIehHXoxMNHfvXI8luI2 OECqrDKwX6QofO5uPWPcTUr zUGKyrdv1JrGzSt0swMDgiT cyMFxzYmtwYWdlXHBnbmNvb nRccGduZGVjXHBsYWluXHBs YWluXGYwXGZzMjRccWxccGx sqQ5pGfNcGhXyVWrxFL7gSM EfV7uynRRqUDHgGXCmV6huF cEvaX9heJgeYQawYaDkNlPq MFxwYXIgSSBoYXZlIHBlcnN jjoOjoXheqfR6rCW2DUTjJI lrQRPnDBBhcYSemj9tnDbwT MClUJ1vXSNdgzCeUEriyJse ZAwkEAV6LDJnhYYupFXvyHT kZSBieSByZXNpZGVudHMsIG BkkZlet5Pku5HgoXU6lR4wo 8omx9EwDQZfcDF6NH74hgO3 lY5wDDGjHB0gEGYuDX7tzIZ ocSSbBOTiu33bmCszyvZaPL BvcnQuXHBsYWluXGYyXGZzM jhcbGFuZzEwMzNcaGljaFxm TftkEgMmMTXbBCufU7pxLjE rCpCwPAbyKXM0lI== Clinical Information (test code = [id number]) PERMANENT STERILIZATION Gross Description (test code = 6555842274) a9pzsQYdPQXxfSLkUvVkRRW kTHYgd7vvJKHtaSHdSzRbHd NcZnRuYmpcdWMxXGRlZmYwe 1pnp798uSLnw4isSYAgUjM7 mTPjISJhxRVaX893ZCAdGDh wk8lqb4OdXBOosSHla9W2MN NEsygnbUt9u7wsEvYyQfG9s VGeLRcrF8uflfWavGThGSPq A5PijgAARZKjFrb6wXuoF58 mk8U7JobsC9ttFPKdIQixSW RzKFlinDEfPEV1KHPbFPW2W RhzrgPkreW1QBrfnUBcOlJ9 NVl8y2oorTdxAOYhPCY3q3r rQAdzebEaLL8npt5mvMl8q8 xjczEgRGVmYXVsdCBQYXJhZ 8PezRhbVq1rzHz1cCqkEoqy JUX2Tmy7UQ2hnm95jcf5hLa xWUIaqzftGwK7TWbaNNKemm fhCYj4YRmmUNEwxVStVCNcj NZiU1UpELpaWU7szml2UjLe IK8azwirYXwhVBTsYNA1AbJ oZZDed9VczoeqTvAxmb7iyf 02FZS1j8LthRreTAV7ZYY9P lAdQf1jsLUiKHZgQY8wIdCr kPXkHDXlne22yAljKDkunxU ifD1vLoJmRIXxiXGhPQSlBJ 7mfPQiUEPqzE0qlifqVBBbF hFeskbeCNQrnRqgliFaAm3z wAqsUWX3UKjjH5xgnN5dQaJ 7YMieS3abkB3sHYz5LXsotJ J0GZEwsD7tXP5mihdjd2boU CK7EFlhDNDanwZ6rlJjCGMv jNKaZ6OekH88VpVsbAFiR0F tbJ4dBUoxNITfcbw7EiCeZk 0rjBKcxDJ3CLtlGiokCMyqY HBnbmNvbnRccGduZGVjXHBs YWluXHBsYWluXGYwXGZzMjB ccGFyZFxwbGFpblxmMFxmcz IwXHBsYWluXGYxXGZzMjAgU 0KlI9ifNL7fZGXbarFtRRUh gCKtESOftdZog1MpUKzpptV sYWJlbGVkIHdpdGggdGhlIH LdaEvvucPgiwFhDS6oGSXUA XGbaF5tWLVpRTVreEsbzLBd LLpitAFjzTxjaUPpVKbbd0N lYA6fwXDvJPOsDV0mQAQeij Hxd0ZeYLAjkB3jDHLxX18xu XBmZQCrV13fhtVdMW8vWITq nh2vpUWmoDZePjBebJ5yeOC rYBV8IkRgUAMfNZOboVZydt AnCC8amWbhKzwoCF32FQFtS HxcGISdCV0giCCjSUPzCOHu GzdkB69cbM6lhYWrW8PfFEC 5IDAuNCBjbSBkaWFtZXRlci kuIFRoZSBmaXJzdCBtZWFzd RKzWPC3lSVfSXqtneEmsFYd eGTiVGzwcG1nxeiiR8ozRTN 1dCBzdXJmYWNlcyBhbmQgdG ciGOIwB64xNTYsTZLekSFbU SU0vFZqJCcloyZaHElsVREk cwTueVItj0JhQhXzIHYqPIY xfIGvs4SluGX7zBHkKDHsH0 Utt79xBPPyHIAfwUUovYM9Z ZKhvE6yJDMkYKHuxVFkGWRh aIPqFHH1tPFgOJ3BRjPmZy3 gMS5nTNC8eeFoUEN1PfYlLk fhVKLtaUhusG1dLiMsTrOlW zvmSB9kIUIdE4bpbWZrYXIt OHRzI8tvCpPbmJ3wyMixKiq jZjFcZnMxNlxwYXJccGxhaW 5cZjFcZnMyMCBKdWxpZSBNY 3ajuKKgCNnrMXAXSYTdlx8= Embedded Images (test code = 4219063991) [facility] [id number] 20:07:00* Test Item Value Reference Range Interpretation Comme nts POCT PREG (test code = 1605) Negative On board controls acceptable with C Line (test code = 3574) Yes POCT PREG LOT # (test code = 3575) POCT PREG TEST DATE ( test code = 3576) Lab Interpretation (test cod e = 19519-6) Normal [facility] [id number] 20:07:00* Test Item Value Reference Range Interpretation Comme nts POCT PREG (test code = 1605) Negative On board controls acceptable with C Line (test code = 3574) Yes POCT PREG LOT # (test code = 3575) POCT PREG TEST DATE ( test code = 3576) Lab Interpretation (test cod e = 44815-7) Normal [facility]
[2023-05-25 09:31] LABS: Absolute Lymphocytes (CBC) 1.8 K/uL (0.7-4.9); Hematocrit 40.5 % (36.0-45.0); Lymphocytes % 25.3 % (15.3-44.8); MCV 81.8 fL (80-100); MPV 7.6 fL (7.6-11.3); Platelets 234 thou/uL (152-406); RBC Red Blood Cell Count 4.95 M/uL (3.86-4.86)
--- NOTE | 2023-05-25 10:01 | RAD REPORT ---
EXAM DESCRIPTION: CT - Soft Tissue Neck W/Contr CLINICAL HISTORY: R mandibular induration COMPARISON: No comparisons TECHNIQUE All CT scans are performed using dose optimization technique as appropriate and may includ e automated exposure control or mA/KV adjustment according to patient size. FINDINGS: Nasopharyngeal tissues are normal in appearance. Fossa Rosenmller are normal. Parapharyngeal fat triangles are symmetric. Tongue base structures are normal. Epiglottis and aryepiglottic folds are normal. Piriform sinuses are well aerated. The vocal cords are normal in appearance. Salivary glands are normal in appearance. Upper lung allison are clear. Included intracranial contents are unremarkable. Skin thickening with possible tiny subcutaneous abscess measuring 3 millimeters in the superficial so ft tissues of the right cheek. IMPRESSION: Right facial cellulitis and possible small subcutaneous 3 mm abscess. No connection to t he deeper structures in the neck or face.
--- NOTE | 2023-05-25 10:08 | EDPHYS ---
Physician Documentation [facility] Name: Michelle Khan Age: 27 yrs Sex: Female : 1995 Arrival Date: 05/25/2023 Time: 08:42 Bed 11 Private MD: ED Physician Yoni Child HPI: 05/25 09:10 This 27 yrs old Female presents to ER via Ambulatory with complaints of Jaw ec2 Pain. 09:11 Patient arrives today for right jaw swelling. Patient reports that she was recently ec2 seen yesterday for an I\T\D, has been prescribed antibiotics. Reports pain and persistent swelling. No vomiting, no fevers, no issues with p.o. intake, no issues with secretions.. 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 - Social history:: Smoking status: . ROS: 09:11 Constitutional: as per hpi ec2 Exam: 09:11 Constitutional: GEN: NAD Head: atraumatic Eyes: EOMI Ears: External ears are normal. ec2 Mouth: No trismus, no issues with secretions. CV: regular rate LUNGS: no respiratory distress ABD: non-distended SKIN: Right submandibular area with induration, no fluctuance appreciated, subtle erythema noted, no significant swelling appreciated. MSK: no evidence of trauma NEURO: moves all extremities equally Vital Signs: 08:49 BP 126 / 86; Pulse 80; Resp 16; Temp 97.6; Pulse Ox 100% on R/A; Weight 86.18 kg; iw Height 5 ft. 5 in. ; 08:49 Body Mass Index 31.62 (86.18 kg, 165.1 cm) iw MDM: 09:06 Patient medically screened. ec2 09:11 Data reviewed: vital signs. ED course: Patient arrives today for evaluation of right ec2 mandibular swelling. Examination remarkable for skin and findings as noted above. Will obtain lab work, CT imaging of the neck. I suspect superficial abscess, evaluating for deep space infection.. 09:49 ED course: CBC reassuring, metabolic profile with appropriate electrolytes and renal ec2 function. Pending CT imaging. . 10:07 ED course: CT scan shows facial cellulitis with possible tiny abscess, will defer ec2 attempted drainage. Will continue antibiotics and have her follow-up with the primary care doctor. Return precautions given.. 05/25 09:10 Order name: CBC with Diff; Complete Time: 09:49 ec2 05/25 09:10 Order name: BMP; Complete Time: 09:49 ec2 05/25 09:10 Order name: CT Soft Tissue Neck W/contr; Complete Time: 10:07 ec2 Administered Medications: 09:36 Drug: oxyCODONE PO 10 mg PO once Route: PO; iw 10:00 Follow up: Response: No adverse reaction; Pain is decreased iw Disposition Summary: 05/25/23 10:07 Discharge Ordered Notes: Continue taking your antibiotics as prescribed. Location: Home ec2 Condition: Stable ec2 Diagnosis - Cellulitis of face ec2 Followup: ec2 - With: Private Physician - When: - Reason: Continuance of care Discharge Instructions: - Discharge Summary Sheet ec2 - Skin Abscess ec2 - Cellulitis, Adult ec2 Forms: - Medication Reconciliation Form ec2 - Thank You Letter ec2 - Antibiotic Education ec2 - Prescription Opioid Use ec2 - Patient Portal Instructions ec2 - Leadership Thank You Letter ec2 Prescriptions: - acetaminophen-codeine 300-15 mg Oral tablet - take 1 tablet ORAL route 3 times per day; 15 tablet; Refills: 0, Product ec2 Selection Permitted Signatures: Dispatcher [employer] Modesta Mancia RN RN iw Yoni Child MD MD ec2 Corrections: (The following items were deleted from the chart) 10:07 09:11 Patient arrives today for right jaw swelling. Patient reports that she was ec2 recently seen yesterday for an I\T\D, has been prescribed Bactrim. Reports pain and persistent swelling. No vomiting, no fevers, no issues with p.o. intake, no issues with secretions.. ec2
--- NOTE | 2023-05-25 10:08 | ER ---
Nurse's Notes [facility] Name: Michelle Khan Age: 27 yrs Sex: Female : 1995 Arrival Date: 05/25/2023 Time: 08:42 Bed 11 Private MD: Diagnosis: Cellulitis of face Presentation: 05/25 08:49 Chief complaint: Patient states: had an abscess on right jaw that was lanced yesterday, iw it is more swollen and painful today, had her first dose of antibiotics. Coronavirus screen: At this time, the client does not indicate any symptoms associated with coronavirus-19. Ebola Screen: Patient negative for fever greater than or equal to 101.5 degrees Fahrenheit, and additional compatible Ebola Virus Disease symptoms Patient denies exposure to infectious person. Patient denies travel to an Ebola-affected area in the 21 days before illness onset. No symptoms or risks identified at this time. Initial Sepsis Screen: Does the patient meet any 2 criteria? No. Patient's initial sepsis screen is negative. Does the patient have a suspected source of infection? No. Patient's initial sepsis screen is negative. Risk Assessment: Do you want to hurt yourself or someone else? Patient reports no desire to harm self or others. Onset of symptoms was May 24, 2023. 08:49 Method Of Arrival: Ambulatory iw 08:49 Acuity: UVALDO 3 iw Triage Assessment: 10:10 General: Appears in no apparent distress. Behavior is calm, cooperative, appropriate cp4 for age. 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 - Social history:: Smoking status: . Screenin:23 [facility] ED Fall Risk Assessment (Adult) Score/Fall Risk Level 0 - 2 = Low Risk. Abuse iw screen: Denies threats or abuse. Denies injuries from another. Nutritional screening: No deficits noted. Tuberculosis screening: No symptoms or risk factors identified. Assessment: 09:22 General: Appears in no apparent distress. Behavior is calm, cooperative. Pain: iw Complains of pain in right jaw Pain. Neuro: Level of Consciousness is awake, alert, obeys commands, Oriented to person, place, time, situation, Moves all extremities. Full function. Cardiovascular: Patient's skin is warm and dry. Respiratory: Respiratory effort is even, unlabored, Respiratory pattern is regular. Derm: Skin. Derm: Skin is healthy with good turgor, Abscess located on right jaw. Musculoskeletal: Range of motion: intact in all extremities. Vital Signs: 08:49 BP 126 / 86; Pulse 80; Resp 16; Temp 97.6; Pulse Ox 100% on R/A; Weight 86.18 kg; iw Height 5 ft. 5 in. ; 08:49 Body Mass Index 31.62 (86.18 kg, 165.1 cm) iw ED Course: 08:44 Patient arrived in ED. ts1 08:50 Triage completed. iw 08:51 Arm band placed on. iw 08:52 Modesta Monterroso RN is Primary Nurse. iw 09:03 Yoni Child MD is Attending Physician. ec2 09:24 Patient has correct armband on for positive identification. Provided Education on: . iw 09:24 Inserted saline lock: 22 gauge in right antecubital area, using aseptic technique. iw Blood collected. 09:52 CT Soft Tissue Neck W/contr In Process Unspecified. EDMS 10:17 No provider procedures requiring assistance completed. intact, bleeding controlled, No cp4 redness/swelling at site. Pressure dressing applied. Administered Medications: 09:36 Drug: oxyCODONE PO 10 mg PO once Route: PO; iw 10:00 Follow up: Response: No adverse reaction; Pain is decreased iw Medication: 10:17 VIS not applicable for this client. cp4 Outcome: 10:07 Discharge ordered by . ec2 10:17 Discharged to home ambulatory, cp4 10:17 Condition: stable 10:17 Discharge instructions given to patient, Instructed on discharge instructions, follow up and referral plans. medication usage, Demonstrated understanding of instructions, follow-up care, medications, Prescriptions given X 1, 10:18 Patient left the ED. cp4 Signatures: Dispatcher [employer] EDMS Modesta Monterroso RN RN iw Shivani Lowery PAS PAS ts1 Yoni Child MD MD ec2 Carmenza Anguiano cp4
[2023-05-25 11:41] VITALS: BP 126/86; TEMP 97.6; O2SAT 100
== END ==
LOC: ER 08:42
DX: L03.211 Cellulitis of face (principal)
CPT/HCPCS: 36415; 70491; 80048; 85025; 99284; Q9967

== ENCOUNTER 2024-02-19 13:01 | Emergency (ER) | payer OTHER ==
[2024-02-19 13:46] LABS: Specific Gravity 1.008 (1.005-1.030)
[2024-02-19 13:52] LABS: Specific Gravity 1.008 (1.005-1.030); Urine Bilirubin NEGATIVE (Negative); Urine Blood Negative (Negative); Urine Clarity Clear (Clear); Urine Color Colorless (Yellow); Urine Glucose NEGATIVE (Negative); Urine Ketones NEGATIVE (Negative); Urine Micro Reflex YN NO BILL NO MICROSCOPIC; Urine Nitrite NEGATIVE (Negative); Urine Protein NEGATIVE (Negative); Urine Urobilinogen Normal (Normal)
--- NOTE | 2024-02-19 14:08 | ER ---
Nurse's Notes [facility] Name: Michelle Khan Age: 28 yrs Sex: Female : 1995 Arrival Date: 02/19/2024 Time: 13:01 Bed 12 Private MD: Diagnosis: Dysuria Presentation: 02/18 13:10 Chief complaint: Patient states: I have to pee a lot and it cadena when i need to pee iw and i have cramping and cramping in my back , started on Wednesday, just got over the flu. Coronavirus screen: At this time, the client does not indicate any symptoms associated with coronavirus-19. Ebola Screen: No symptoms or risks identified at this time. Initial Sepsis Screen: Does the patient meet any 2 criteria? No. Patient's initial sepsis screen is negative. Does the patient have a suspected source of infection? No. Patient's initial sepsis screen is negative. Risk Assessment: Do you want to hurt yourself or someone else? Patient reports no desire to harm self or others. 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 - Infectious Disease History:: Denies. - Social history:: Smoking status: Reported history of juuling and/or vaping. Vital Signs: 13:10 Pulse 85; Resp 16; Temp 98.1; Pulse Ox 100% ; Weight 83.91 kg; Height 5 ft. 5 in. ; iw Pain 3/10; 13:10 Body Mass Index 30.79 (83.91 kg, 165.1 cm) iw 13:10 Pain Scale: Adult iw ED Course: 13:04 Patient arrived in ED. mr 13:05 Lisa Serrano PA-C is PHCP. sb4 13:05 Erick Talamantes MD is Attending Physician. sb4 13:12 Triage completed. iw 14:05 Modesta Monterroso, NELSON is Primary Nurse. iw Administered Medications: No medications were administered Outcome: 14:08 Discharge ordered by MD. [email or web address] 14:29 Patient left the ED. iw Signatures: María Brady, Jerald Marques mr Modesta Monterroso, RN RN Lisa Miller PA-C PA-C sb4
--- NOTE | 2024-02-19 14:08 | EDPHYS ---
Physician Documentation [facility] Name: Michelle Khan Age: 28 yrs Sex: Female : 1995 Arrival Date: 02/19/2024 Time: 13:01 Bed 12 Private MD: JONI Physician Erick Talamantes HPI: 02/18 13:28 This 28 yrs old Female presents to ER via Ambulatory with complaints of Urinary sb4 Problem, Back Pain. 13:28 The patient presents with urinary symptoms, dysuria, urgency. Onset: The sb4 symptoms/episode began/occurred 2 day(s) ago. Modifying factors: The symptoms are alleviated by nothing, the symptoms are aggravated by nothing. Associated signs and symptoms: The patient has no apparent associated signs or symptoms, Pertinent negatives: dyspareunia, fever, vaginal bleeding, vaginal discharge. The patient is sexually active, reportedly has a single partner. The patient's method of control includes tubal ligation. The patient has experienced a previous episode, many years ago. The patient has not recently seen a physician. 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 - Infectious Disease History:: Denies. - Social history:: Smoking status: Reported history of juuling and/or vaping. ROS: 13:29 Positive for urinary symptoms, burning with urination, sb4 13:29 Constitutional: Negative for fever, chills, and weight loss, 13:29 All other systems are negative, Exam: 13:29 Constitutional: This is a well developed, well nourished patient who is awake, alert, sb4 and in no acute distress. Head/Face: Normocephalic, atraumatic. Eyes: Extra-ocular motions intact. Periorbital areas with no swelling, redness, or edema. ENT: Mucous membranes moist. Respiratory: No increased work of breathing, no retractions or nasal flaring. Abdomen/GI: Soft, non-tender, no distension. Back: No spinal tenderness. No costovertebral tenderness. Full range of motion. Skin: Warm, dry with normal turgor. Normal color with no rashes, no lesions, and no evidence of cellulitis. Vital Signs: 13:10 Pulse 85; Resp 16; Temp 98.1; Pulse Ox 100% ; Weight 83.91 kg; Height 5 ft. 5 in. ; iw Pain 3/10; 13:10 Body Mass Index 30.79 (83.91 kg, 165.1 cm) iw 13:10 Pain Scale: Adult iw MDM: 13:06 Medical Screening Exam initiated sb4 14:07 Data reviewed: vital signs, nurses notes, lab test result(s), and as a result, I will sb4 discharge patient. Counseling: I had a detailed discussion with the patient and/or guardian regarding the historical points, exam findings, and any diagnostic results supporting the discharge/admit diagnosis, lab results, to return to the emergency department if symptoms worsen or persist or if there are any questions or concerns that arise at home. 02/18 13:09 Order name: UAM; Complete Time: 13:59 sb4 02/18 13:09 Order name: Test, Urine; Complete Time: 13:49 sb4 Administered Medications: No medications were administered Disposition Summary: 02/19/24 14:08 Discharge Ordered Notes: Location: Home sb4 Problem: new sb4 Symptoms: are unchanged sb4 Condition: Stable sb4 Diagnosis - Dysuria sb4 Followup: sb4 - With: Emergency Department - When: As needed - Reason: Fever > 102 F, Worsening of condition Followup: sb4 - With: Private Physician - When: 1 week - Reason: Recheck today's complaints, Re-evaluation by your physician Discharge Instructions: - Discharge Summary Sheet sb4 - Dysuria sb4 Forms: - Antibiotic Education sb4 - Patient Portal Instructions sb4 - Leadership Thank You Letter sb4 Prescriptions: - Pyridium 200 mg Oral Tablet - take 1 tablet ORAL route every 8 hours for 3 days; 9 tablet; Refills: 0, sb4 Product Selection Permitted - Macrobid 100 mg Oral capsule - take 1 capsule ORAL route every 12 hours for 5 days; 10 capsule; Refills: 0, sb4 Product Selection Permitted Signatures: Dispatcher [employer] Modesta Mancia RN RN iw Brown, Sophia, PA-C PA-C sb4
[2024-02-19 17:13] VITALS: TEMP 98.1; O2SAT 100
== END 2024-02-19 14:29 | disposition home or self-care (01) ==
LOC: ER 13:01
DX: R30.0 Dysuria (principal); M54.9 Dorsalgia, unspecified
CPT/HCPCS: 81001; 81025; 99281

== ENCOUNTER 2025-02-18 11:57 | Emergency (ER) | payer OTHER ==
[2025-02-18 12:53] LABS: Urine Microscopic Reflex YN NO UMIC
--- NOTE | 2025-02-18 15:29 | ER ---
Nurse's Notes [facility] Name: Michelle Khan Age: 29 yrs Sex: Female : 1995 Arrival Date: 02/18/2025 Time: 11:57 Bed 26 Private MD: Diagnosis: Pelvic and perineal pain-SUSPECT BACTERIAL VAGINOSIS Presentation: 02/18 12:15 Chief complaint: Patient states: has a vaginal odor and increased discharge. No pain. me1 Started a few weeks ago, tried probiotics but it hasnt improved. Coronavirus screen: Vaccine status: Patient reports being unvaccinated. Ebola Screen: No symptoms or risks identified at this time. Initial Sepsis Screen: Does the patient meet any 2 criteria? No. Patient's initial sepsis screen is negative. Does the patient have a suspected source of infection? No. Patient's initial sepsis screen is negative. Risk Assessment: Do you want to hurt yourself or someone else? Patient reports no desire to harm self or others. Onset of symptoms is unknown. 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 - Infectious Disease History:: Denies. - Social history:: Smoking status: Reported history of juuling and/or vaping. - Family history:: not pertinent. Screenin:34 [facility] ED Fall Risk Assessment (Adult) History of falling in the last 3 months, iw including since admission No falls in past 3 months (0 pts) Confusion or Disorientation No (0 pts) Intoxicated or Sedated No (0 pts) Impaired Gait No (0 pts) Mobility Assist Device Used No (0 pt) Altered Elimination No (0 pt) Score/Fall Risk Level 0 - 2 = Low Risk Oriented to surroundings, Maintained a safe environment. Abuse screen: Denies threats or abuse. Denies injuries from another. Nutritional screening: No deficits noted. Tuberculosis screening: No symptoms or risk factors identified. Assessment: 14:34 Reassessment: Patient appears in no apparent distress at this time. Patient and/or iw family updated on plan of care and expected duration. Pain level reassessed. Patient is alert, oriented x 3, equal unlabored respirations, skin warm/dry/pink. 15:16 Reassessment: pt tearful, has not been seen by provider yet, Dr. Talamantes notified that iw pt has not been seen and is requesting antibiotics. Vital Signs: 12:15 BP 139 / 91; Pulse 80; Resp 18; Temp 98.6; Pulse Ox 98% ; Weight 83.91 kg; Height 5 ft. me1 5 in. ; Pain 0/10; 12:15 Body Mass Index 30.79 (83.91 kg, 165.1 cm) me1 12:15 Pain Scale: Adult ks1 ED Course: 12:02 Patient arrived in ED. cj3 12:04 Erick Talamantes MD is Attending Physician. [facility] 12:17 Triage completed. me1 12:17 Arm band placed on Patient placed in waiting room. me1 12:45 PREGU Sent. ts3 12:45 UA Rfx Andi Cult if indicated Sent. ts3 12:45 Urine collected: clean catch specimen, sent to lab. ts3 13:15 Modesta Monterroso, RN is Primary Nurse. iw 14:34 Patient has correct armband on for positive identification. iw 15:27 Babita Hagan MD is Referral Physician. [facility] 15:57 No provider procedures requiring assistance completed. Patient did not have IV access iw during this emergency room visit. Administered Medications: 15:42 Drug: Rocephin (cefTRIAXone) IM 500 mg IM once Route: IM; Site: right ventrogluteal; iw 15:42 Drug: AZITHromycin PO 1 grams PO once Route: PO; iw 15:43 Drug: metroNIDAZOLE PO 2000 mg PO once Route: PO; iw Medication: 14:34 VIS not applicable for this client. iw Outcome: 15:28 Discharge ordered by . [facility] 15:57 Discharged to home ambulatory, iw 15:57 Condition: good 15:57 Discharge instructions given to patient, Instructed on discharge instructions, follow up and referral plans. medication usage, Demonstrated understanding of instructions, follow-up care, medications, Prescriptions given X 2, 15:58 Patient left the ED. iw Signatures: Erick Talamantes MD MD cha Williams, Irene, RN RN Lakia Cantor RN RN me1 Rupinder Tavera cj3 Linda Powers ts3
--- NOTE | 2025-02-18 15:29 | EDPHYS ---
Physician Documentation [facility] Name: Michelle Khan Age: 29 yrs Sex: Female : 1995 Arrival Date: 02/18/2025 Time: 11:57 Bed 26 Private MD: ED Physician Erick Talamantes HPI: 02/18 15:22 This 29 yrs old Female presents to ER via Ambulatory with complaints of kamran Vaginal Discomfort. 15:22 The patient presents with pelvic pain, vaginal discharge. Onset: The symptoms/episode kamran began/occurred 3 day(s) ago. Modifying factors: The symptoms are alleviated by nothing, the symptoms are aggravated by nothing. Associated signs and symptoms: Pertinent positives: vaginal discharge. Severity of symptoms: At their worst the symptoms were moderate, in the emergency department the symptoms are unchanged. The patient is sexually active, reportedly has a single partner. 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 - Infectious Disease History:: Denies. - Social history:: Smoking status: Reported history of juuling and/or vaping. - Family history:: not pertinent. ROS: 15:22 Constitutional: Negative for fever, chills, and weight loss, Eyes: Negative for injury, kamran pain, redness, and discharge, ENT: Negative for injury, pain, and discharge, Neck: Negative for injury, pain, and swelling, Cardiovascular: Negative for chest pain, palpitations, and edema, Respiratory: Negative for shortness of breath, cough, wheezing, and pleuritic chest pain, Abdomen/GI: Negative for abdominal pain, nausea, vomiting, diarrhea, and constipation, Back: Negative for injury and pain, MS/Extremity: Negative for injury and deformity, Skin: Negative for injury, rash, and discoloration, Neuro: Negative for headache, weakness, numbness, tingling, and seizure, Psych: Negative for depression, anxiety, suicide ideation, homicidal ideation, and hallucinations, Allergy/Immunology: Negative for hives, rash, and allergies, Endocrine: Negative for neck swelling, polydipsia, polyuria, polyphagia, and marked weight changes, Hematologic/Lymphatic: Negative for swollen nodes, abnormal bleeding, and unusual bruising, 15:22 : Positive for vaginal discharge, Exam: 15:22 Constitutional: This is a well developed, well nourished patient who is awake, alert, kamran and in no acute distress. Head/Face: Normocephalic, atraumatic. Eyes: Pupils equal round and reactive to light, extra-ocular motions intact. Lids and lashes normal. Conjunctiva and sclera are non-icteric and not injected. Cornea within normal limits. Periorbital areas with no swelling, redness, or edema. ENT: Nares patent. No nasal discharge, no septal abnormalities noted. Tympanic membranes are normal and external auditory canals are clear. Oropharynx with no redness, swelling, or masses, exudates, or evidence of obstruction, uvula midline. Mucous membranes moist. Neck: Trachea midline, no thyromegaly or masses palpated, and no cervical lymphadenopathy. Supple, full range of motion without nuchal rigidity, or vertebral point tenderness. No Meningismus. Chest/axilla: Normal chest wall appearance and motion. Nontender with no deformity. No lesions are appreciated. Cardiovascular: Regular rate and rhythm with a normal S1 and S2. No gallops, murmurs, or rubs. Normal PMI, no JVD. No pulse deficits. Respiratory: Lungs have equal breath sounds bilaterally, clear to auscultation and percussion. No rales, rhonchi or wheezes noted. No increased work of breathing, no retractions or nasal flaring. Abdomen/GI: Soft, non-tender, with normal bowel sounds. No distension or tympany. No guarding or rebound. No evidence of tenderness throughout. Back: No spinal tenderness. No costovertebral tenderness. Full range of motion. Skin: Warm, dry with normal turgor. Normal color with no rashes, no lesions, and no evidence of cellulitis. MS/ Extremity: Pulses equal, no cyanosis. Neurovascular intact. Full, normal range of motion., bilateral aka Neuro: Awake and alert, GCS 15, oriented to person, place, time, and situation. Cranial nerves II-XII grossly intact. Motor strength 5/5 in all extremities. Sensory grossly intact. Cerebellar exam normal. Normal gait. Psych: Awake, alert, with orientation to person, place and time. Behavior, mood, and affect are within normal limits. Vital Signs: 12:15 BP 139 / 91; Pulse 80; Resp 18; Temp 98.6; Pulse Ox 98% ; Weight 83.91 kg; Height 5 ft. me1 5 in. ; Pain 0/10; 12:15 Body Mass Index 30.79 (83.91 kg, 165.1 cm) me1 12:15 Pain Scale: Adult me1 MDM: 12:04 Medical Screening Exam initiated [facility] 15:26 Differential diagnosis: cervicitis, pelvic inflammatory disease, urinary tract kamran infection, vaginosis. Data reviewed: vital signs, nurses notes, lab test result(s), urinalysis. Consideration of Admission/Observation Escalation of care including admission/observation considered. I considered the following discharge prescriptions or medication management in the emergency department Medications were administered in the Emergency Department. See MAR. Test considered but Not performed: Labs: NO CBC , NO CMP MET. Care significantly affected by the following chronic conditions: BELIEVES SHE HAS BV. 02/18 12:04 Order name: UA Rfx Andi Cult if indicated; Complete Time: 15:17 kamran 02/18 12:04 Order name: PREGU; Complete Time: 15:17 [facility] Administered Medications: 15:42 Drug: Rocephin (cefTRIAXone) IM 500 mg IM once Route: IM; Site: right ventrogluteal; iw 15:42 Drug: AZITHromycin PO 1 grams PO once Route: PO; iw 15:43 Drug: metroNIDAZOLE PO 2000 mg PO once Route: PO; iw Disposition Summary: 02/18/25 15:28 Discharge Ordered Notes: Location: Home [facility] Problem: new kamran Symptoms: have improved kamran Condition: Stable kamran Diagnosis - Pelvic and perineal pain - SUSPECT BACTERIAL VAGINOSIS kamran Followup: kamran - With: Private Physician - When: 2 - 3 days - Reason: Recheck today's complaints, Continuance of care, Re-evaluation by your physician Followup: kamran - With: Babita Hagan MD - When: 2 - 3 days - Reason: Recheck today's complaints, Re-evaluation by your physician Discharge Instructions: - Discharge Summary Sheet kamran - Bacterial Vaginosis kamran - Pelvic Pain, Female kamran - Pelvic Pain, Female, [id number] kamran - Bacterial Vaginosis, [id number] kamran Forms: - Medication Reconciliation Form kamran - Antibiotic Education kamran - Prescription Opioid Use kamran - Patient Portal Instructions [facility] - Leadership Thank You Letter [facility] Prescriptions: - Flagyl 500 mg Oral Tablet - take 1 tablet ORAL route every 12 hours for 7 days; 14 tablet; Refills: 0, [facility] Product Selection Permitted - Fluconazole 200 mg Oral tablet - take 1 tablet ORAL route as directed TAKE 1 TAB PO WEEKLY SYMPTOMS PERSIST; [facility] 3 tablet; Refills: 0, Product Selection Permitted Signatures: Dispatcher [employer] Erick Carrillo MD MD cha Williams, Irene, RN RN Lakia Cantor RN RN me1 Corrections: (The following items were deleted from the chart) 12:05 12:05 UA Rfx Andi Cult if indicated+U.LAB.BRZ ordered. EDMS EDMS 12:05 12:05 Test, Urine+UC.LAB.BRZ ordered. EDMS EDMS
[2025-02-18] MEDS ORDERED: CEFTRIAXONE 500 MG/VIAL ONE (15:34)
[2025-02-18] MEDS ORDERED: LIDOCAINE 1% MPF 5 ML VIAL ONE (15:34)
[2025-02-18] MEDS ORDERED: AZITHROMYCIN 250 MG TAB ONE (15:35)
[2025-02-18 18:42] VITALS: BP 139/91; TEMP 98.6; O2SAT 98
== END 2025-02-18 15:58 | disposition home or self-care (01) ==
LOC: ER 11:57
DX: R10.20 Pelvic and perineal pain unspecified side (principal); N89.8 Other specified noninflammatory disorders of vagina
CPT/HCPCS: 81025; 81003; 96372; 99284; J2003; J0696